=== PATIENT | female | born 1930 | race Caucasian/White ===

== ENCOUNTER 2018-11-27 17:57 | Inpatient (IN) | payer MEDICARE, BC ==
[~2018-11-27] VITALS: Ht 157.5 cm; Wt 61.7 kg
[2018-11-27] MEDS ORDERED: ENOX40DI SQ (18:41)
[2018-11-27] MEDS ORDERED: ATOR10TA PO (18:41)
[2018-11-27] MEDS ORDERED: ZOLP5TAB8 PO (18:41)
[2018-11-27] MEDS ORDERED: CITA10TA9 PO (18:41)
[2018-11-27] MEDS ORDERED: HYDR-3326 PO (18:41)
[2018-11-27] MEDS ORDERED: ALLO100T PO (18:41)
[2018-11-27] MEDS ORDERED: MAG355OR18 PO (18:41)
[2018-11-27] MEDS ORDERED: CARV3.122 PO (18:41)
[2018-11-27] MEDS ORDERED: MAGN400O6 PO (18:41)
[2018-11-27] MEDS ORDERED: ONDA2VIA IV (18:41)
[2018-11-27] MEDS ORDERED: LEVO88TA2 PO (18:41)
[2018-11-27] MEDS ORDERED: ACET-2154 PO (18:41)
[2018-11-27 18:55] VITALS: BP 105/54
--- NOTE | 2018-11-27 19:05 | NUR ---
PATIENT ARRIVED TO UNIT AT 1730 VIA [facility], MD COPELAND AND JHON NOTIFED OF PATIENTS ARRIVAL, VITALS: 105/ 54, 18 RESPIRATIONS, 95% ON ROOM AIR, 64 PULSE, 99.4 ORAL TEMPERATURE, NO COMPLAINTS OF PAIN, NO SIGNS OF DISTRESS NOTED, CALL LIGHT IN REACH, BED LOCKED AND IN LOWEST POSITION, ALL NEEDS MET AT THIS TIME
[2018-11-27 19:55] VITALS: BP 129/47
[2018-11-27] MEDS ORDERED: MAGNESIUM HYDROXIDE 30 ML LIQUID UDC PO PRN (20:30)
[2018-11-27] MEDS ORDERED: MAG HYDROX/AL HYDROX/SIMETH 30 ML LIQUID UDC PO PRN (20:30)
[2018-11-27] MEDS ORDERED: CARVEDILOL 3.125 MG TABLET PO SCH (21:00)
[2018-11-27] MEDS: ATORVASTATIN 10 MG TABLET PO SCH (21:47)
[2018-11-27] MEDS: HYDROCODONE/APAP 5-325MG TABLET PO PRN (22:02)
[2018-11-28] MEDS: HYDROCODONE/APAP 5-325MG TABLET PO PRN (06:26)
[2018-11-28 06:28] VITALS: BP 123/58
[2018-11-28] MEDS ORDERED: LEVOTHYROXINE SODIUM 88 MCG TABLET PO SCH (07:30)
[2018-11-28 08:00] VITALS: BP 104/43
[2018-11-28] MEDS: CARVEDILOL 3.125 MG TABLET PO SCH ×2 (08:00→18:30)
[2018-11-28 08:09] LABS: BASOPHILS % (AUTO) 0.6 % (0.0-2.0); EOSINOPHILS # (AUTO) 0.1 K/uL (0.0-0.7); EOSINOPHILS % (AUTO) 2.4 % (0.0-7.0); HEMATOCRIT 29.7 % (31.2-41.9); HEMOGLOBIN 10.2 g/dL (10.9-14.3); LYMPHOCYTES # (AUTO) 1.1 K/uL (20.0-40.0); LYMPHOCYTES % (AUTO) 21.9 % (20.5-51.5); MEAN CORPUSCULAR HGB CONC 34 g/dL (32.3-35.6); MEAN CORPUSCULAR VOLUME 102.4 fL (75.5-95.3); MONOCYTES # (AUTO) 0.4 K/uL (2.0-10.0); MONOCYTES % (AUTO) 8.7 % (0.0-11.0); NEUTROPHILS # (AUTO) 3.2 K/uL (1.8-8.9); NEUTROPHILS % (AUTO) 66.4 % (38.5-71.5); PLATELET COUNT (AUTO) 177 K/uL (179-408); WHITE BLOOD COUNT (AUTO) 4.9 K/uL (3.8-11.8)
[2018-11-28 08:34] LABS: THYROID STIMULATING HORMONE 6.856 mIU/mL (0.358-3.740)
[2018-11-28 08:58] LABS: ALANINE AMINOTRANSFERASE 17 U/L (14-59); ALKALINE PHOSPHATASE 49 U/L (50-136); ASPARTATE AMINOTRANSFERASE 24 U/L (15-37); BILIRUBIN,TOTAL 0.7 mg/dL (0.2-1.0); CARBON DIOXIDE 26 mmol/L (21-32); CHLORIDE 104 mmol/L (98-107); CHOLESTEROL 118 mg/dL (<200); CREATININE 0.9 mg/dL (0.6-1.3); GLUCOSE 101 mg/dL (74-106); HDL CHOLESTEROL 22 mg/dL (40-60); MAGNESIUM 1.9 mg/dL (1.8-2.4); POTASSIUM 3.7 mmol/L (3.5-5.1); TOTAL PROTEIN, SERUM 6.3 g/dL (6.4-8.2); TRIGLYCERIDES 88 MG/DL (30-150); UREA NITROGEN, BLOOD 11 mg/dL (7-18); URIC ACID 3.8 mg/dL (2.6-6.0)
[2018-11-28] MEDS: LEVOTHYROXINE SODIUM 88 MCG TABLET PO SCH (09:50)
[2018-11-28] MEDS: ALLOPURINOL 100 MG TABLET PO SCH (09:50)
[2018-11-28] MEDS: CITALOPRAM 10 MG TABLET PO SCH (09:50)
[2018-11-28] MEDS: ENOXAPARIN SODIUM 40 MG/0.4 ML DISP.SYRIN SQ SCH (09:53)
[2018-11-28 16:28] VITALS: BP 126/51
[2018-11-28 19:46] VITALS: BP 107/53
--- NOTE | 2018-11-28 20:00 | NUR ---
Received patient laying in bed. No acute distress noted. A/O x 2 with episodes of forgetfulness. In room air. Dressing on the left hip C/D/I. Safety initiated. Bed alarm on. Patient c/o abdominal discomfort. Poor urine output. Will closely monitor.
[2018-11-28] MEDS: ATORVASTATIN 10 MG TABLET PO SCH (20:48)
--- NOTE | 2018-11-28 21:45 | NUR ---
Bladder scan done. 422. Straight cath done. 450 total output. MD made aware. New orders per MD. Urine was sent for U/A. Will closely monitor.
[2018-11-28 23:24] LABS: *BILIRUBIN,URIN NEGATIVE (NEGATIVE); *BLOOD, URINE NEGATIVE (NEGATIVE); *CLARITY,URINE CLEAR (CLEAR); *COLOR,URINE YELLOW (YELLOW); *KETONES,URINE NEGATIVE (NEGATIVE); LEUKOCYTE ESTERASE ,URINE NEGATIVE (NEGATIVE); NITRITE, URINE NEGATIVE (NEGATIVE); PH,URINE 5.5 (5.0-8.0); UGLUCOSE NEGATIVE (NEGATIVE)
[2018-11-28 23:26] LABS: BACTERIA,URINE NONE SEEN /HPF (NONE SEEN); RBC,URINE 0-3 /HPF (0-3); SQUAMOUS EPITHELIAL CELL,UR FEW /HPF (NONE SEEN); URINE AMORPHOUS URATE FEW /HPF; WBC,URINE 0-3 /HPF (0-3)
[2018-11-28 23:27] LABS: MUCUS,URINE FEW /LPF (0-FEW)
[2018-11-29 05:00] VITALS: BP 147/63
--- NOTE | 2018-11-29 05:42 | NUR ---
Patient slept t/o shift. Denies pain or SOB. Vital signs stable. No temperature. Dressing on the left hip, C/D/I. Safety and comfort measures maintained t/o shift. Good urine output. All meds given as ordered. All needs met.
[2018-11-29] MEDS: LEVOTHYROXINE SODIUM 88 MCG TABLET PO SCH (06:23)
[2018-11-29 07:48] VITALS: BP 141/60
[2018-11-29] MEDS: ACETAMINOPHEN 325 MG TABLET PO PRN (09:06)
[2018-11-29] MEDS: ALLOPURINOL 100 MG TABLET PO SCH (09:07)
[2018-11-29] MEDS: CARVEDILOL 3.125 MG TABLET PO SCH ×2 (09:07→17:48)
[2018-11-29] MEDS: CITALOPRAM 10 MG TABLET PO SCH (09:07)
[2018-11-29] MEDS: ENOXAPARIN SODIUM 40 MG/0.4 ML DISP.SYRIN SQ SCH (09:09)
[2018-11-29 15:39] VITALS: BP 129/57
--- NOTE | 2018-11-29 18:36 | NUR ---
Patient A&O x2 with episodes of forgetfulness noted at times. Vital signs taken and stable for patient. Due medications administered. Tylenol 650mg 2 tbas PO PRN administered before PT/OT for pain management and effective. Dressing on Left hip intact and dry. No drainage noted. Patient with 2 person assist and BPR. Monitored closely, needs met, safety measures in place, call light left at bed side, endorsed to next shift and will continue with care.
--- NOTE | 2018-11-29 19:00 | NUR ---
PATIENT ALERT ABLE TO MAKE NEEDS KNOW, PATIENT HAS NO SOB NO CHEST PAIN. PATIENT COMPLAIN OF LEFT HIP PAIN WILL MEDICATE ORDERED. KEPT CLEAN AND DRY.
[2018-11-29 20:36] VITALS: BP 115/60
[2018-11-29] MEDS: ATORVASTATIN 10 MG TABLET PO SCH (20:39)
[2018-11-29] MEDS: HYDROCODONE/APAP 5-325MG TABLET PO PRN (20:47)
[2018-11-30 05:54] VITALS: BP 121/56
[2018-11-30] MEDS: LEVOTHYROXINE SODIUM 88 MCG TABLET PO SCH (06:03)
--- NOTE | 2018-11-30 06:19 | NUR ---
PATIENT ALERT ABLE TO MAKE NEEDS KNOW, ASSISTED WITH TOILETING. PATIENT HAS NO FURTHER COMPLAIN OF L HIP PAIN, SLEPT MOST OF THE NIGHT. WILL CONT TO MONITOR.
[2018-11-30 07:53] VITALS: BP 127/54
[2018-11-30] MEDS: CARVEDILOL 3.125 MG TABLET PO SCH ×2 (08:00→18:00)
[2018-11-30] MEDS: CITALOPRAM 10 MG TABLET PO SCH (08:42)
[2018-11-30] MEDS: ALLOPURINOL 100 MG TABLET PO SCH (08:42)
[2018-11-30] MEDS: ACETAMINOPHEN 325 MG TABLET PO PRN (08:43)
[2018-11-30] MEDS: ENOXAPARIN SODIUM 40 MG/0.4 ML DISP.SYRIN SQ SCH (08:45)
--- NOTE | 2018-11-30 10:11 | NUR ---
INDIVIDUALIZE PLAN OF CARE
[2018-11-30 15:57] VITALS: BP 130/54
--- NOTE | 2018-11-30 19:30 | NUR ---
Patient found sleeping in room. Alert and oriented x 2-3. Irritable upon assessment. No C/O pain or SOB at this time. Continent, with BRP assist to the bathroom. Call light and frequently used items within reach. Will continue to monitor.
--- NOTE | 2018-11-30 19:55 | NUR ---
patient Alert and Oriented, No acute distress. VS stable. Left hip surgical site dry and intact. No c/o pain at this time. Needs attended, safety measures in place. call light left at bed side, endorsed to next shift and will continue with care.
[2018-11-30 19:56] VITALS: BP 118/52
[2018-11-30] MEDS: ATORVASTATIN 10 MG TABLET PO SCH (20:21)
[2018-12-01] MEDS: LEVOTHYROXINE SODIUM 88 MCG TABLET PO SCH (06:20)
[2018-12-01 06:43] VITALS: BP 99/62
--- NOTE | 2018-12-01 08:00 | NUR ---
Received patient awake in bed. AAOx2. In no acute distress. Denies pain at this time. No SOB noted. Safety measures implemented. Call light within reach. Will continue to monitor.
[2018-12-01] MEDS: ALLOPURINOL 100 MG TABLET PO SCH (08:46)
[2018-12-01] MEDS: CARVEDILOL 3.125 MG TABLET PO SCH ×2 (08:46→18:00)
[2018-12-01] MEDS: CITALOPRAM 10 MG TABLET PO SCH (08:46)
[2018-12-01 08:59] VITALS: BP 143/77
[2018-12-01] MEDS: ENOXAPARIN SODIUM 40 MG/0.4 ML DISP.SYRIN SQ SCH (09:07)
[2018-12-01 15:42] VITALS: BP 119/53
--- NOTE | 2018-12-01 16:10 | NUR ---
INTERDISCIPLINARY TEAM CONFERENCE
[2018-12-01] MEDS: HYDROCODONE/APAP 5-325MG TABLET PO PRN (18:17)
--- NOTE | 2018-12-01 18:22 | NUR ---
Patient compliant with care and medication. Complained of left hip/thigh pain; PRN Z[place] administered. No SOB noted. All needs met. Will endorse accordingly. Continue plan of care.
--- NOTE | 2018-12-01 19:30 | NUR ---
Alert and oriented x 2-3. Restless upon assessment. Patient states that she would like to . Psych consult pending. No C/O pain or SOB at this time. Continent, with BRP assist with wheelchair to the bathroom. Call light and frequently used items within reach. Will continue to monitor.
[2018-12-01] MEDS: ATORVASTATIN 10 MG TABLET PO SCH (20:09)
[2018-12-01] MEDS: ZOLPIDEM 5 MG TABLET PO PRN (20:09)
[2018-12-01 20:49] VITALS: BP 122/64
[2018-12-02 05:31] VITALS: BP 126/70
[2018-12-02] MEDS: LEVOTHYROXINE SODIUM 88 MCG TABLET PO SCH (06:10)
[2018-12-02 07:43] VITALS: BP 131/57
[2018-12-02] MEDS: ALLOPURINOL 100 MG TABLET PO SCH (08:26)
[2018-12-02] MEDS: HYDROCODONE/APAP 5-325MG TABLET PO PRN (08:26)
[2018-12-02] MEDS: CITALOPRAM 10 MG TABLET PO SCH (08:26)
[2018-12-02] MEDS: CARVEDILOL 3.125 MG TABLET PO SCH ×2 (08:27→17:15)
[2018-12-02] MEDS: ENOXAPARIN SODIUM 40 MG/0.4 ML DISP.SYRIN SQ SCH (08:32)
--- NOTE | 2018-12-02 09:58 | NUR ---
Patient noted sitting up in bed eating breakfast, complaints of pain, PRN norco given, no signs of distress noted, call light in reach, bed locked and in lowest position
[2018-12-02 16:00] VITALS: BP 94/45
--- NOTE | 2018-12-02 19:30 | NUR ---
Alert and oriented x 2-3. No C/O pain or SOB at this time. Patient requesting Ambien as night time sleep aid. Continent, with BRP assist with wheelchair to the bathroom. Call light and frequently used items within reach. Will continue to monitor.
[2018-12-02] MEDS: ATORVASTATIN 10 MG TABLET PO SCH (20:13)
[2018-12-02] MEDS: ZOLPIDEM 5 MG TABLET PO PRN (20:14)
[2018-12-02 20:25] VITALS: BP 109/52
[2018-12-03] MEDS: HYDROCODONE/APAP 5-325MG TABLET PO PRN ×2 (04:49→09:13)
[2018-12-03 05:22] VITALS: BP 108/55
[2018-12-03] MEDS: LEVOTHYROXINE SODIUM 88 MCG TABLET PO SCH (06:18)
[2018-12-03 08:00] VITALS: BP 113/66
[2018-12-03] MEDS: ALLOPURINOL 100 MG TABLET PO SCH (08:29)
[2018-12-03] MEDS: CITALOPRAM 10 MG TABLET PO SCH (08:29)
[2018-12-03] MEDS: CARVEDILOL 3.125 MG TABLET PO SCH ×2 (08:29→18:00)
[2018-12-03] MEDS: ENOXAPARIN SODIUM 40 MG/0.4 ML DISP.SYRIN SQ SCH (08:30)
--- NOTE | 2018-12-03 08:57 | NUR ---
Patient noted laying in bed, took all AM medications, no changes in mental status, complaints of left hip pain, prn [place] given, no signs of distress noted, call light in reach, bed locked and in lowest position, all needs met at this time
[2018-12-03 16:00] VITALS: BP 110/62
--- NOTE | 2018-12-03 19:30 | NUR ---
Alert and oriented x 2-3. No C/O pain or SOB at this time. Continent, with BRP assist with wheelchair to the bathroom. Patient requesting night time sleep aid and Tylenol for pain in left hip. Original surgical dressing intact or left hip. Call light and frequently used items within reach. Will continue to monitor.
[2018-12-03] MEDS: ZOLPIDEM 5 MG TABLET PO PRN (20:15)
[2018-12-03] MEDS: ACETAMINOPHEN 325 MG TABLET PO PRN (20:15)
[2018-12-03] MEDS: ATORVASTATIN 10 MG TABLET PO SCH (20:15)
[2018-12-03 20:57] VITALS: BP 109/47
[2018-12-04 04:29] VITALS: BP 121/58
[2018-12-04] MEDS: LEVOTHYROXINE SODIUM 88 MCG TABLET PO SCH (06:24)
[2018-12-04 09:00] VITALS: BP 113/54
[2018-12-04] MEDS: CARVEDILOL 3.125 MG TABLET PO SCH ×2 (09:18→18:00)
[2018-12-04] MEDS: CITALOPRAM 10 MG TABLET PO SCH (09:19)
[2018-12-04] MEDS: ALLOPURINOL 100 MG TABLET PO SCH (09:19)
[2018-12-04] MEDS: ENOXAPARIN SODIUM 40 MG/0.4 ML DISP.SYRIN SQ SCH (09:26)
--- NOTE | 2018-12-04 12:13 | NUR ---
Pt received this morning sitting up in wheelchair for breakfast. Pt AAOx1-2. No acute distress, VS stable. Pt compliant with routine medications and cooperative with therapies as offered. Pt denies pain. Left hip original surgical dressing intact. Able to make needs known and showered with assistance and helped back to bed. All comfort and safety needs met. Bed in locked and lowest position, with side rails up, and bed alarm on. Call light placed within reach. Will continue to monitor.
[2018-12-04 16:00] VITALS: BP 103/43
[2018-12-04 20:00] VITALS: BP 123/58
[2018-12-04] MEDS: ATORVASTATIN 10 MG TABLET PO SCH (20:23)
[2018-12-04] MEDS: ZOLPIDEM 5 MG TABLET PO PRN (21:02)
--- NOTE | 2018-12-05 05:53 | NUR ---
PATIENT ASLEEP IN BED. SLEPT WELL THROUGHOUT THE NIGHT. BED ALARM ON. CALL LIGHT IN REACH. ALL NEEDS ATTENDED. WILL CONTINUE TO MONITOR AND ASSESS,
[2018-12-05] MEDS: LEVOTHYROXINE SODIUM 88 MCG TABLET PO SCH (06:15)
[2018-12-05 07:52] VITALS: BP 127/77
[2018-12-05] MEDS: ALLOPURINOL 100 MG TABLET PO SCH (08:14)
[2018-12-05] MEDS: CITALOPRAM 10 MG TABLET PO SCH (08:14)
[2018-12-05] MEDS: CARVEDILOL 3.125 MG TABLET PO SCH ×2 (08:15→18:00)
[2018-12-05] MEDS: ENOXAPARIN SODIUM 40 MG/0.4 ML DISP.SYRIN SQ SCH (08:24)
[2018-12-05] MEDS ORDERED: MAG HYDROX/AL HYDROX/SIMETH 30 ML LIQUID UDC PO PRN (14:00)
[2018-12-05] MEDS: ACETAMINOPHEN 325 MG TABLET PO PRN (15:12)
[2018-12-05 15:56] VITALS: BP 138/60
--- NOTE | 2018-12-05 18:56 | NUR ---
Pt received this morning resting in bed, assessed. No acute distress, pain, or SOB noted. Pt is able to make needs known. VSS. Pt assisted to restroom for BMx1 and voiding. Pt returned to bed. Bed in locked and lowest position with side rails up x2. Bed alarm on. All comfort and safety needs met. Personal belongings and call light placed within reach, will continue to monitor.
[2018-12-05 19:46] VITALS: BP 137/50
[2018-12-05] MEDS: ATORVASTATIN 10 MG TABLET PO SCH (20:55)
[2018-12-05] MEDS: ZOLPIDEM 5 MG TABLET PO PRN (21:06)
[2018-12-06 04:54] VITALS: BP 125/62
[2018-12-06] MEDS: LEVOTHYROXINE SODIUM 88 MCG TABLET PO SCH (06:49)
[2018-12-06 07:16] LABS: BASOPHILS % (AUTO) 0.7 % (0.0-2.0); EOSINOPHILS # (AUTO) 0.2 K/uL (0.0-0.7); EOSINOPHILS % (AUTO) 3.4 % (0.0-7.0); HEMATOCRIT 31.6 % (31.2-41.9); HEMOGLOBIN 10.7 g/dL (10.9-14.3); LYMPHOCYTES # (AUTO) 1.5 K/uL (20.0-40.0); LYMPHOCYTES % (AUTO) 26.6 % (20.5-51.5); MEAN CORPUSCULAR HEMOGLOBIN 34.6 uug (24.7-32.8); MEAN CORPUSCULAR HGB CONC 34 g/dL (32.3-35.6); MEAN CORPUSCULAR VOLUME 101.7 fL (75.5-95.3); MONOCYTES # (AUTO) 0.4 K/uL (2.0-10.0); MONOCYTES % (AUTO) 6.3 % (0.0-11.0); NEUTROPHILS # (AUTO) 3.6 K/uL (1.8-8.9); PLATELET COUNT (AUTO) 357 K/uL (179-408); RED BLOOD CELL COUNT(AUTO) 3.11 MIL/uL (3.63-4.92); WHITE BLOOD COUNT (AUTO) 5.8 K/uL (3.8-11.8)
[2018-12-06 07:37] LABS: CARBON DIOXIDE 26 mmol/L (21-32); CHLORIDE 104 mmol/L (98-107); CREATININE 0.9 mg/dL (0.6-1.3); GLUCOSE 102 mg/dL (74-106); UREA NITROGEN, BLOOD 10 mg/dL (7-18)
--- NOTE | 2018-12-06 07:44 | NUR ---
SLEEPING IN BED, NO DISTRESS NOTED
[2018-12-06 08:01] VITALS: BP 123/53
[2018-12-06] MEDS: ALLOPURINOL 100 MG TABLET PO SCH (08:22)
[2018-12-06] MEDS: CITALOPRAM 10 MG TABLET PO SCH (08:22)
[2018-12-06] MEDS: CARVEDILOL 3.125 MG TABLET PO SCH ×2 (08:22→17:17)
[2018-12-06] MEDS: ENOXAPARIN SODIUM 40 MG/0.4 ML DISP.SYRIN SQ SCH (08:24)
--- NOTE | 2018-12-06 14:13 | NUR ---
PATIENT NOTED WITH ITCHING AND REDNESS, TO BILATERAL HANDS AND WRISTS, MD ORDERED HYDROCORTISONE,WILL CONTINUE TO MONITOR
[2018-12-06 15:51] VITALS: BP 125/62
[2018-12-06 16:01] VITALS: BP 125/62
[2018-12-06] MEDS: HYDROCORTISONE 1% CREAM 30 GM TUBE TP SCH (17:16)
--- NOTE | 2018-12-06 17:35 | NUR ---
patient is alert, oriented x2-3, ambulatory with FWW, with supervision, no distress noted, no sob, resp even nonlabored, skin warm and dry to touch, kept clean and dry, good perineal care provided, educated about safety, all needs attended, call light with in reach.
[2018-12-06 19:45] VITALS: BP 105/51
[2018-12-06] MEDS: ATORVASTATIN 10 MG TABLET PO SCH ×2 (20:51→20:58)
[2018-12-07 04:36] VITALS: BP 116/49
[2018-12-07] MEDS: LEVOTHYROXINE SODIUM 88 MCG TABLET PO SCH (06:48)
[2018-12-07] MEDS: CITALOPRAM 10 MG TABLET PO SCH (09:26)
[2018-12-07] MEDS: ALLOPURINOL 100 MG TABLET PO SCH (09:27)
[2018-12-07] MEDS: CARVEDILOL 3.125 MG TABLET PO SCH ×2 (09:28→18:16)
[2018-12-07] MEDS: HYDROCORTISONE 1% CREAM 30 GM TUBE TP SCH ×2 (09:31→17:34)
[2018-12-07] MEDS: ENOXAPARIN SODIUM 40 MG/0.4 ML DISP.SYRIN SQ SCH (09:46)
--- NOTE | 2018-12-07 13:16 | NUR ---
SBAR report received this morning from [facility] nurse. Pt resting in bed, comfortably. Pt assessed, denies pain with no acute distress noted. Pt able to make needs known. Pt compliant with medications and cooperative with therapies as offered. Pt assisted by SALMA to shower, left hip original dressing covered, still accidentally became wet. New dressing applied, Photo taken of skin integrity, 8 kayleigh intact, and Sx well approximated, with no s/s of infection. Pt teaching provided. All comfort and safety needs met. Bed in locked and lowest position with side rails up x2, bed alarm on, personal items and call light placed within reach. Will continue to monitor.
[2018-12-07 16:00] VITALS: BP 128/67
[2018-12-07 19:47] VITALS: BP 112/41
[2018-12-07] MEDS: ACETAMINOPHEN 325 MG TABLET PO PRN (19:49)
[2018-12-07] MEDS: ATORVASTATIN 10 MG TABLET PO SCH (20:52)
[2018-12-08] MEDS: HYDROCODONE/APAP 5-325MG TABLET PO PRN (00:53)
--- NOTE | 2018-12-08 02:24 | NUR ---
No change in Pt status. VSS. Pt able to make needs known. Pt compliant with routine medications. Tylenol administered per PRN orders. Call light and belongings placed within reach. Bed in locked, lowest position, with side rails up x2, and bed alarm on. All comfort needs attended to. Will continue to monitor for safety.
[2018-12-08 05:32] VITALS: BP 132/60
[2018-12-08] MEDS: LEVOTHYROXINE SODIUM 88 MCG TABLET PO SCH (06:22)
[2018-12-08 07:51] VITALS: BP 116/48
[2018-12-08] MEDS: CITALOPRAM 10 MG TABLET PO SCH (08:11)
[2018-12-08] MEDS: ALLOPURINOL 100 MG TABLET PO SCH (08:11)
[2018-12-08] MEDS: CARVEDILOL 3.125 MG TABLET PO SCH ×2 (08:12→17:48)
[2018-12-08] MEDS: HYDROCORTISONE 1% CREAM 30 GM TUBE TP SCH ×2 (08:13→16:37)
[2018-12-08] MEDS: ENOXAPARIN SODIUM 40 MG/0.4 ML DISP.SYRIN SQ SCH (08:22)
--- NOTE | 2018-12-08 14:44 | NUR ---
INTERDISCIPLINARY TEAM CONFERENCE
[2018-12-08 16:38] VITALS: BP 114/50
[2018-12-08] MEDS: ATORVASTATIN 10 MG TABLET PO SCH (20:45)
[2018-12-08 21:40] VITALS: BP 100/57
--- NOTE | 2018-12-09 04:41 | NUR ---
awake alert and oriented x2-3 Confused and disoriented.VSS. Needs attended. Fall precautions maintained. Siderails up for safety. OOB to the BR with assist. Voiding freely. No acute distress noted. Kept comfortable. Will monitor patient.
[2018-12-09 05:13] VITALS: BP 110/50
[2018-12-09] MEDS: LEVOTHYROXINE SODIUM 88 MCG TABLET PO SCH (06:27)
[2018-12-09 07:51] VITALS: BP 122/51
[2018-12-09] MEDS: ALLOPURINOL 100 MG TABLET PO SCH (09:39)
[2018-12-09] MEDS: CITALOPRAM 10 MG TABLET PO SCH (09:39)
[2018-12-09] MEDS: CARVEDILOL 3.125 MG TABLET PO SCH ×2 (09:39→17:17)
[2018-12-09] MEDS: ENOXAPARIN SODIUM 40 MG/0.4 ML DISP.SYRIN SQ SCH (09:40)
[2018-12-09] MEDS: HYDROCORTISONE 1% CREAM 30 GM TUBE TP SCH ×2 (09:44→17:18)
[2018-12-09] MEDS: ACETAMINOPHEN 325 MG TABLET PO PRN (09:45)
[2018-12-09 15:39] VITALS: BP 128/56
--- NOTE | 2018-12-09 17:46 | NUR ---
The patient remains pleasantly confused. She spoke with her daughter Yamila via phone and her son in person today. She mentions she wishes she could go home today because she said it is so hard to be in an unfamiliar environment. She remembers she lives next to a school at her current residence.Patient watching television. Patient request to have assistance with her television. Assistant Professor Of Economics and COMMISSIONS MANAGER gave patient assistance with her channel buttons. Patient with even unlabored breathing. No complaint of pain at this time. Endorsement to next shift team registered nurse. Cornelio Matos RN
[2018-12-09] MEDS: ATORVASTATIN 10 MG TABLET PO SCH (20:16)
[2018-12-09 20:38] VITALS: BP 115/51
[2018-12-10] MEDS: ACETAMINOPHEN 325 MG TABLET PO PRN (01:22)
[2018-12-10 05:21] VITALS: BP 119/54
[2018-12-10] MEDS: LEVOTHYROXINE SODIUM 88 MCG TABLET PO SCH (06:04)
--- NOTE | 2018-12-10 06:39 | NUR ---
Received patient in bed. AAO x2, sometimes confused. Not in acute distress or SOB. Able to make needs known. On room air. Complained of pain on her left hip, Tylenol given. All due medication given and well tolerated. Physical assessment done. All needs attended promptly. Fall prevention observed. Safety measures maintained. Bed in low and lock position, alarm on, side rails up x2 for safety. Patient educated to use call light. Call light and frequently used items within reach. Continue to monitor and will endorse to the oncoming nurse accordingly.
[2018-12-10] MEDS: ENOXAPARIN SODIUM 40 MG/0.4 ML DISP.SYRIN SQ SCH (08:34)
[2018-12-10] MEDS: ALLOPURINOL 100 MG TABLET PO SCH (08:40)
[2018-12-10] MEDS: CITALOPRAM 10 MG TABLET PO SCH (08:40)
[2018-12-10] MEDS: HYDROCORTISONE 1% CREAM 30 GM TUBE TP SCH ×2 (08:47→17:17)
[2018-12-10] MEDS: CARVEDILOL 3.125 MG TABLET PO SCH ×2 (08:47→17:18)
[2018-12-10 09:37] VITALS: BP 115/66
[2018-12-10 16:43] VITALS: BP 117/72
--- NOTE | 2018-12-10 18:26 | NUR ---
NO CHANGES NOTED DURING SHIFT, PATIENT IS ABLE TO AMBULATE WITH FWW TO THE BATHROOM WITH SUPERVISION, ALERT, ORIENTED AT TIMES WITH EPISODES OF FORGETFULNESS, REORIENTED NEEDED, TOLERATED MEALS AND MEDS WELL.
--- NOTE | 2018-12-10 19:35 | NUR ---
Awake, trying to get out of bed. Bed alarm on. Instructed patient to call for assistance whenever she wants to use the bathroom. Assisted to the bathroom, voided good. Assisted back to bed, made comfortable. safety measure and fall precaution maintained. Continue care as planned.
[2018-12-10] MEDS: ATORVASTATIN 10 MG TABLET PO SCH (20:22)
[2018-12-10] MEDS: ZOLPIDEM 5 MG TABLET PO PRN (20:22)
[2018-12-10 21:03] VITALS: BP 100/53
[2018-12-11 04:33] VITALS: BP 130/63
[2018-12-11] MEDS: LEVOTHYROXINE SODIUM 88 MCG TABLET PO SCH (06:29)
--- NOTE | 2018-12-11 06:48 | NUR ---
Shift End Report: Slept well. No s/s of respiratory distress. No complaint presented throughout the night. All needs attended and met. No significant event reported. Continue current rehab plan of care.
[2018-12-11 07:52] VITALS: BP 126/65
[2018-12-11] MEDS: CITALOPRAM 10 MG TABLET PO SCH (08:38)
[2018-12-11] MEDS: CARVEDILOL 3.125 MG TABLET PO SCH ×2 (08:38→17:15)
[2018-12-11] MEDS: ALLOPURINOL 100 MG TABLET PO SCH (08:38)
[2018-12-11] MEDS: ENOXAPARIN SODIUM 40 MG/0.4 ML DISP.SYRIN SQ SCH (08:45)
[2018-12-11] MEDS: HYDROCODONE/APAP 5-325MG TABLET PO PRN (08:45)
[2018-12-11] MEDS: HYDROCORTISONE 1% CREAM 30 GM TUBE TP SCH ×2 (08:50→17:16)
--- NOTE | 2018-12-11 10:34 | NUR ---
Patient noted sitting up in wheelchair during therapy, complaints of pain, PRN Chromo given, no signs of distress noted, call light in reach, bed locked and in lowest position, all needs met at this time.
[2018-12-11 17:10] VITALS: BP 109/55
--- NOTE | 2018-12-11 18:44 | NUR ---
no behaviors noted this shift, no complaints of pain at this time, no signs of acute distress noted, all needs met
--- NOTE | 2018-12-11 19:35 | NUR ---
Sleeping comfortably during initial rounds. No s/s of respiratory distress noted. Safety measure and fall precaution maintained. Continue care as planned.
[2018-12-11] MEDS: ATORVASTATIN 10 MG TABLET PO SCH (20:25)
[2018-12-11] MEDS: ACETAMINOPHEN 325 MG TABLET PO PRN (20:25)
[2018-12-11 21:06] VITALS: BP 105/52
[2018-12-12 04:39] VITALS: BP 110/50
--- NOTE | 2018-12-12 05:33 | NUR ---
Shift End Report: VS stable. Slept in between care. Medicated once for discomforts. No further complained presented. No fall/injury reported. All needs attended and met. Continue current rehab plan of care.
[2018-12-12] MEDS: LEVOTHYROXINE SODIUM 88 MCG TABLET PO SCH (06:31)
[2018-12-12 07:37] VITALS: BP 112/52
[2018-12-12] MEDS: CITALOPRAM 10 MG TABLET PO SCH (08:56)
[2018-12-12] MEDS: ALLOPURINOL 100 MG TABLET PO SCH (08:56)
[2018-12-12] MEDS: CARVEDILOL 3.125 MG TABLET PO SCH ×2 (08:57→17:53)
--- NOTE | 2018-12-12 09:00 | NUR ---
Patient awake, alert, sitting on the chair, not in any distress. No complain of any pain or discomfort at this time. Due medications administered and tolerated well. Assisted with her needs promptly. Call light and frequently used items placed within reach.
[2018-12-12] MEDS: ENOXAPARIN SODIUM 40 MG/0.4 ML DISP.SYRIN SQ SCH (09:03)
[2018-12-12] MEDS: HYDROCORTISONE 1% CREAM 30 GM TUBE TP SCH ×2 (09:29→17:28)
[2018-12-12 16:24] VITALS: BP 119/60
--- NOTE | 2018-12-12 19:35 | NUR ---
Sleeping during initial rounds. No s/s of respiratory distress. Safety measure and fall precaution maintained. Continue care as planned.
[2018-12-12] MEDS: ATORVASTATIN 10 MG TABLET PO SCH (20:15)
[2018-12-12] MEDS: ACETAMINOPHEN 325 MG TABLET PO PRN (20:15)
[2018-12-12 20:41] VITALS: BP 105/47
[2018-12-13 04:53] VITALS: BP 129/53
[2018-12-13] MEDS: LEVOTHYROXINE SODIUM 88 MCG TABLET PO SCH (06:24)
--- NOTE | 2018-12-13 06:42 | NUR ---
Shift End Report: VS stable. Medicated once for pain with help. Slept good. No further complaint presented except being feeling cold when getting out to the bathroom. Made comfortable and warm at all times. No fall/injury . Assisted to the bathroom all the time to avoid fall. All needs attended nad met. No significant event reported. Continue current rehab plan of care.
[2018-12-13 07:50] VITALS: BP 115/74
[2018-12-13] MEDS: CITALOPRAM 10 MG TABLET PO SCH (09:13)
[2018-12-13] MEDS: CARVEDILOL 3.125 MG TABLET PO SCH ×2 (09:13→17:07)
[2018-12-13] MEDS: ALLOPURINOL 100 MG TABLET PO SCH (09:14)
[2018-12-13] MEDS: HYDROCORTISONE 1% CREAM 30 GM TUBE TP SCH ×2 (09:14→17:06)
[2018-12-13] MEDS: ENOXAPARIN SODIUM 40 MG/0.4 ML DISP.SYRIN SQ SCH (09:19)
[2018-12-13 15:49] VITALS: BP 112/54
[2018-12-13 20:03] VITALS: BP 112/61
[2018-12-13] MEDS: ATORVASTATIN 10 MG TABLET PO SCH (20:34)
--- NOTE | 2018-12-14 04:30 | NUR ---
awake alert and oriented x2-3 with periods of forgetfulness at times. Patient gets OOB to the BR without calling the nurse, bed alarm on, and reminding patient all the time. Ambulates with walker under supervision. Denies any pain nor any discomfort. Possible discharge today. Kept comfortable. Will monitor patient. Fall precautions maintained. Siderails up for safety.
[2018-12-14 05:52] VITALS: BP 113/57
[2018-12-14] MEDS: LEVOTHYROXINE SODIUM 88 MCG TABLET PO SCH (06:20)
[2018-12-14 08:14] VITALS: BP 123/61
[2018-12-14] MEDS: CITALOPRAM 10 MG TABLET PO SCH (08:42)
[2018-12-14] MEDS: ALLOPURINOL 100 MG TABLET PO SCH (08:42)
[2018-12-14 08:44] VITALS: BP 117/52
[2018-12-14] MEDS: CARVEDILOL 3.125 MG TABLET PO SCH (08:44)
[2018-12-14] MEDS: ENOXAPARIN SODIUM 40 MG/0.4 ML DISP.SYRIN SQ SCH (08:46)
[2018-12-14] MEDS: HYDROCORTISONE 1% CREAM 30 GM TUBE TP SCH (08:49)
--- NOTE | 2018-12-14 14:42 | NUR ---
PATIENT DISCHARGED TO ASSISTED LIVING, WITH DAUGHTER IN HER PRIVATE CAR, PATIENT IS IN STABLE CONDITION, NO SOB, RESP EVEN NONLABORED,SKIN WARM AND DRY TO TOUCH, SKIN INTACT, INCISION SITE IS CLEAN AND DRY, NO SKIN ISSUES NOTED AT THIS TIME, DISCHARGE INSTRUCTIONS GIVEN TO PATIENT AND DAUGHTER, VERBALIZED UNDERSTANDING OF IT, WHEELCHAIR, BEDSIDE COMMODE, AND FWW SENT WITH PATIENT, BELONGINGS ACCOUNTED AND SIGNED, PRESCRIPTION, MEDS LIST, AND DISCHARGE INSTRUCTIONS ARE GIVEN TO PATIENT AND TO DAUGHTER.
== END 2018-12-14 14:30 | disposition home health service (06) | DRG 559 ==
PROVIDERS: ADMIT Physical Medicine & Rehabilitation Pain Medicine; ATTEND Physical Medicine & Rehabilitation Pain Medicine
DX: S72.012D Unspecified intracapsular fracture of left femur, subsequent encounter for closed fracture with routine healing (principal); E43 Unspecified severe protein-calorie malnutrition; D62 Acute posthemorrhagic anemia; W18.30XD Fall on same level, unspecified, subsequent encounter; E03.9 Hypothyroidism, unspecified; E78.5 Hyperlipidemia, unspecified; F32.9 Major depressive disorder, single episode, unspecified; F41.9 Anxiety disorder, unspecified; R26.9 Unspecified abnormalities of gait and mobility; M19.90 Unspecified osteoarthritis, unspecified site; R41.89 Other symptoms and signs involving cognitive functions and awareness; M10.9 Gout, unspecified; M81.0 Age-related osteoporosis without current pathological fracture; I11.0 Hypertensive heart disease with heart failure; I50.9 Heart failure, unspecified; Z66 Do not resuscitate; Z86.73 Personal history of transient ischemic attack (TIA), and cerebral infarction without residual deficits
CPT/HCPCS: 36415; 73502; 82652; 83735; 84100; 84443; 84550; 85025; C1758; J1650; J8499

== ENCOUNTER 2019-12-03 20:39 | Inpatient (IN) | payer MEDICARE, BC ==
[~2019-12-03] VITALS: Ht 162.6 cm; Wt 63.5 kg
--- NOTE | 2019-12-03 20:00 | NUR ---
RECEIVED PATIENT VIA GURNEY DIRECT ADMIT. PATIENT IS ALERT TO SELF ONLY. CONFUSED AND DISORIENTED, BUT ABLE TO FOLLOW DIRECTIONS. C/O PAIN RIGHT HIP. WAITING FOR MD ORDERS. VS WNL. NO RESP.DISTRESS NOTED. DRESSINGS NOTED TO RIGHT HIP, C/D/I. CALL LIGHT IN REACH. BED ALARM ON. ALL NEEDS ATTENDED. WILL CONTINUE TO MONITOR AND ASSESS.
[~2019-12-03 20:39] MED LIST: ACET-2154 PO; ALLO100T PO; ATOR10TA PO; CARV3.122 PO; CITA10TA9 PO; ENOX40DI SQ; HYDR-3326 PO; LEVO88TA2 PO; MAG355OR18 PO; MAGN400O6 PO; ONDA2VIA IV; ZOLP5TAB8 PO
[2019-12-03] MEDS: HYDROCODONE/APAP 5-325MG TABLET PO PRN (21:07)
[2019-12-03 21:20] VITALS: BP 108/43
[2019-12-03] MEDS ORDERED: ACID1TAB4 PO (21:33)
[2019-12-03] MEDS ORDERED: LOPE2CAP40 PO (21:33)
[2019-12-03] MEDS ORDERED: ACET-2154 PO (21:33)
[2019-12-03] MEDS ORDERED: EMOL85CR2 (21:33)
[2019-12-03] MEDS ORDERED: BISA10SU61 RC (21:33)
[2019-12-03] MEDS ORDERED: MIRT-121 PO (21:33)
[2019-12-03] MEDS ORDERED: HYDR-4384 PO (21:33)
[2019-12-03] MEDS ORDERED: ALLO100T PO (21:33)
[2019-12-03] MEDS ORDERED: MINE454C11 TP (21:33)
[2019-12-03] MEDS ORDERED: MAG-82 PO (21:33)
[2019-12-03] MEDS ORDERED: ZINC113P3 TP (21:33)
[2019-12-03] MEDS ORDERED: LEVO125T8 PO (21:33)
[2019-12-03] MEDS ORDERED: NUT.237L36 PO (21:33)
[2019-12-03] MEDS ORDERED: MAGN400O6 PO (21:33)
[2019-12-03] MEDS ORDERED: ASPI81TA31 PO (21:33)
[2019-12-03] MEDS ORDERED: ONDA4TAB5 IV (21:33)
[2019-12-03] MEDS ORDERED: CARV3.12 PO (21:33)
[2019-12-03] MEDS ORDERED: QUET25TA PO (21:33)
[2019-12-04 04:33] VITALS: BP 106/43
--- NOTE | 2019-12-04 06:53 | NUR ---
PATIENT ASLEEP. EASILY AROUSABLE. DENIES PAIN. SLEPT WELL. BED ALARM ON. CALL LIGHT IN REACH. ALL NEEDS ATTENDED. WILL CONTINUE TO MONITOR AND ASSESS.
[2019-12-04 07:52] VITALS: BP 96/42
[2019-12-04] MEDS ORDERED: SIMETH PO SCH (08:30)
[2019-12-04] MEDS ORDERED: MAGNESIUM HYDROXIDE 30 ML LIQUID UDC PO PRN (08:30)
[2019-12-04] MEDS ORDERED: ONDANSETRON HCL 4 MG TABLET PO PRN (08:30)
[2019-12-04] MEDS ORDERED: BISACODYL 10 MG SUPP.RECT RC PRN (08:30)
[2019-12-04] MEDS ORDERED: MAG HYDROX PO SCH (08:30)
[2019-12-04] MEDS ORDERED: ZOLPIDEM 5 MG TABLET PO PRN (08:30)
[2019-12-04] MEDS ORDERED: LOPERAMIDE HCL 2 MG CAPSULE PO PRN (08:30)
[2019-12-04] MEDS ORDERED: MAG HYDROX/AL HYDROX/SIMETH 30 ML LIQUID UDC PO PRN (08:30)
[2019-12-04] MEDS ORDERED: ACETAMINOPHEN 325 MG TABLET PO PRN ×2 (08:30)
[2019-12-04] MEDS ORDERED: AL HYDROX PO SCH (08:30)
[2019-12-04] MEDS ORDERED: CARVEDILOL 3.125 MG TABLET PO SCH (09:00)
[2019-12-04] MEDS ORDERED: ALLOPURINOL 100 MG TABLET PO SCH (09:00)
[2019-12-04] MEDS: CARVEDILOL 3.125 MG TABLET PO SCH ×2 (09:00→21:00)
[2019-12-04] MEDS: ACIDOPHILUS/BULGARICUS CHEW TAB PO SCH (09:09)
[2019-12-04] MEDS: ALLOPURINOL 100 MG TABLET PO SCH (09:09)
[2019-12-04] MEDS: ASPIRIN 81 MG TAB.CHEW PO SCH (09:09)
[2019-12-04] MEDS: QUETIAPINE FUMARATE 25 MG TABLET PO SCH ×2 (09:10→16:38)
[2019-12-04] MEDS: CITALOPRAM 10 MG TABLET PO SCH (09:11)
[2019-12-04] MEDS: HYDROCODONE/APAP 5-325MG TABLET PO PRN (09:11)
[2019-12-04] MEDS: MINERAL OIL/PETROLATUM,WHITE 57 GM TUBE TP SCH (09:13)
[2019-12-04] MEDS: GLUCERNA SHAKE 237 ML CAN PO SCH ×2 (09:13→16:38)
[2019-12-04 09:47] LABS: BASOPHILS % (AUTO) 0.3 % (0.0-2.0); EOSINOPHILS # (AUTO) 0.2 K/uL (0.0-0.7); EOSINOPHILS % (AUTO) 1.6 % (0.0-7.0); HEMATOCRIT 22.4 % (31.2-41.9); HEMOGLOBIN 7.6 g/dL (10.9-14.3); LYMPHOCYTES # (AUTO) 1.8 K/uL (20.0-40.0); LYMPHOCYTES % (AUTO) 14.5 % (20.5-51.5); MEAN CORPUSCULAR HEMOGLOBIN 34.7 uug (24.7-32.8); MEAN CORPUSCULAR HGB CONC 34 g/dL (32.3-35.6); MEAN CORPUSCULAR VOLUME 102.6 fL (75.5-95.3); MONOCYTES # (AUTO) 0.7 K/uL (2.0-10.0); MONOCYTES % (AUTO) 5.3 % (0.0-11.0); NEUTROPHILS # (AUTO) 9.6 K/uL (1.8-8.9); NEUTROPHILS % (AUTO) 78.3 % (38.5-71.5); PLATELET COUNT (AUTO) 263 K/uL (179-408); WHITE BLOOD COUNT (AUTO) 12.3 K/uL (3.8-11.8)
[2019-12-04 10:07] LABS: CREATININE 0.9 mg/dL (0.6-1.3)
[2019-12-04 10:22] LABS: RED BLOOD CELL COUNT(AUTO) 2.18 MIL/uL (3.63-4.92)
[2019-12-04] MEDS: ENOXAPARIN SODIUM 40 MG/0.4 ML DISP.SYRIN SQ SCH (11:55)
[2019-12-04] MEDS ORDERED: NALOXONE HCL 0.4 MG/ML AMPUL IV PRN (12:15)
[2019-12-04] MEDS: OXYCODONE HCL 10 MG TAB.SR.12H PO SCH ×2 (12:36→21:05)
--- NOTE | 2019-12-04 14:54 | NUR ---
PATIENT REFUSED FLU SHOT FOR NOW, WILL OFFER AGAIN AND FOLLOW UP WITH FAMILY
[2019-12-04 15:22] VITALS: BP 113/52
--- NOTE | 2019-12-04 18:27 | NUR ---
KEPT COMFORTABLE, REPOSITIONED, HEELS FLOATED, NO BLEEDING NOTED AT SURGERY SITE, NO DISTRESS NOTED
[2019-12-04] MEDS: HYDROCODONE/APAP 10-325 MG TABLET PO PRN (18:31)
[2019-12-04] MEDS: MIRTAZAPINE 15 MG TABLET PO SCH (21:05)
[2019-12-04] MEDS: ATORVASTATIN 10 MG TABLET PO SCH (21:05)
[2019-12-04 21:08] VITALS: BP 103/48
--- NOTE | 2019-12-04 21:56 | NUR ---
Coreg medication due not given. SBP 103/48. Will recheck and monitor.
[2019-12-05 04:42] VITALS: BP 111/62
[2019-12-05] MEDS: LEVOTHYROXINE SODIUM 112 MCG TABLET PO SCH (05:22)
[2019-12-05] MEDS: HYDROCODONE/APAP 10-325 MG TABLET PO PRN ×3 (05:22→23:13)
[2019-12-05 06:24] LABS: BASOPHILS # (AUTO) 0.1 K/uL (0.0-8.0); BASOPHILS % (AUTO) 0.4 % (0.0-2.0); EOSINOPHILS # (AUTO) 0.2 K/uL (0.0-0.7); EOSINOPHILS % (AUTO) 1.6 % (0.0-7.0); HEMATOCRIT 23.7 % (31.2-41.9); HEMOGLOBIN 7.9 g/dL (10.9-14.3); LYMPHOCYTES # (AUTO) 2.2 K/uL (20.0-40.0); LYMPHOCYTES % (AUTO) 16.7 % (20.5-51.5); MEAN CORPUSCULAR HEMOGLOBIN 34.8 uug (24.7-32.8); MEAN CORPUSCULAR HGB CONC 33 g/dL (32.3-35.6); MEAN CORPUSCULAR VOLUME 105.2 fL (75.5-95.3); MONOCYTES # (AUTO) 0.9 K/uL (2.0-10.0); NEUTROPHILS # (AUTO) 9.8 K/uL (1.8-8.9); NEUTROPHILS % (AUTO) 74.3 % (38.5-71.5); PLATELET COUNT (AUTO) 292 K/uL (179-408); WHITE BLOOD COUNT (AUTO) 13.2 K/uL (3.8-11.8)
[2019-12-05 06:35] LABS: RED BLOOD CELL COUNT(AUTO) 2.26 MIL/uL (3.63-4.92)
[2019-12-05 06:38] LABS: CREATININE 1.1 mg/dL (0.6-1.3); POTASSIUM 4.1 mmol/L (3.5-5.1)
[2019-12-05 07:30] VITALS: BP 109/52
[2019-12-05] MEDS ORDERED: LEVOTHYROXINE SODIUM 88 MCG TABLET PO SCH (07:30)
[2019-12-05] MEDS ORDERED: LEVOTHYROXINE SODIUM 125 MCG TABLET PO SCH (07:30)
[2019-12-05] MEDS: CITALOPRAM 10 MG TABLET PO SCH (08:03)
[2019-12-05] MEDS: ACIDOPHILUS/BULGARICUS CHEW TAB PO SCH (08:04)
[2019-12-05] MEDS: ASPIRIN 81 MG TAB.CHEW PO SCH (08:04)
[2019-12-05] MEDS: QUETIAPINE FUMARATE 25 MG TABLET PO SCH ×2 (08:04→17:07)
[2019-12-05] MEDS: ALLOPURINOL 100 MG TABLET PO SCH (08:04)
[2019-12-05] MEDS: OXYCODONE HCL 10 MG TAB.SR.12H PO SCH ×2 (08:04→20:54)
[2019-12-05] MEDS: CARVEDILOL 3.125 MG TABLET PO SCH ×2 (08:05→20:54)
[2019-12-05] MEDS: MINERAL OIL/PETROLATUM,WHITE 57 GM TUBE TP SCH (08:05)
[2019-12-05] MEDS: Z GUARD REMEDY PASTE 57 GM TUBE TOP PRN (08:20)
[2019-12-05] MEDS: ENOXAPARIN SODIUM 40 MG/0.4 ML DISP.SYRIN SQ SCH (08:23)
[2019-12-05] MEDS: GLUCERNA SHAKE 237 ML CAN PO SCH ×2 (08:24→17:06)
[2019-12-05 15:30] VITALS: BP 128/67
--- NOTE | 2019-12-05 15:38 | NUR ---
patient is confuse, disorganized thoughts constantly talking, removed her clothes, try to comfort, repositioned, pain medication administered, incision site is clean and dry, kayleigh are intact, continue to monitor
[2019-12-05 20:10] VITALS: BP 111/56
[2019-12-05] MEDS: MIRTAZAPINE 15 MG TABLET PO SCH (20:54)
[2019-12-05] MEDS: ATORVASTATIN 10 MG TABLET PO SCH (20:55)
[2019-12-05] MEDS: MAGNESIUM HYDROXIDE 30 ML LIQUID UDC PO PRN (21:03)
--- NOTE | 2019-12-05 22:00 | NUR ---
Received Pt lying in bed, sleeping, very confused and disoriented. Re oriented multiple times. On RA no s/s of acute distress noted, No SOB noted. Hip incision intact with kayleigh and open to air. All due medication administered and tolerated well. Patient removed her clothes multiple times. Repositioned for comfort, BLE elevated with pillow. All needs attended to. Safety measure in place. All personal items and call light within pt reach. Will continue to monitor.
[2019-12-06 04:30] VITALS: BP 148/54
[2019-12-06] MEDS: LEVOTHYROXINE SODIUM 112 MCG TABLET PO SCH (06:07)
[2019-12-06 07:17] LABS: LYMPHOCYTES % (AUTO) 20.6 % (20.5-51.5); MONOCYTES # (AUTO) 0.6 K/uL (2.0-10.0)
[2019-12-06 07:18] LABS: BASOPHILS % (AUTO) 0.4 % (0.0-2.0); EOSINOPHILS # (AUTO) 0.1 K/uL (0.0-0.7); EOSINOPHILS % (AUTO) 1.4 % (0.0-7.0); HEMATOCRIT 22.2 % (31.2-41.9); MEAN CORPUSCULAR HEMOGLOBIN 34.9 uug (24.7-32.8); MEAN CORPUSCULAR HGB CONC 33 g/dL (32.3-35.6); MEAN CORPUSCULAR VOLUME 104.4 fL (75.5-95.3); MONOCYTES % (AUTO) 5.8 % (0.0-11.0); NEUTROPHILS # (AUTO) 6.9 K/uL (1.8-8.9); NEUTROPHILS % (AUTO) 71.8 % (38.5-71.5); PLATELET COUNT (AUTO) 284 K/uL (179-408); WHITE BLOOD COUNT (AUTO) 9.6 K/uL (3.8-11.8)
[2019-12-06 07:30] VITALS: BP 111/52
[2019-12-06 07:31] LABS: CREATININE 0.9 mg/dL (0.6-1.3); POTASSIUM 4.4 mmol/L (3.5-5.1)
[2019-12-06 07:35] LABS: RED BLOOD CELL COUNT(AUTO) 2.13 MIL/uL (3.63-4.92)
[2019-12-06 07:38] LABS: HEMOGLOBIN 7.4 g/dL (10.9-14.3)
--- NOTE | 2019-12-06 08:00 | NUR ---
MD informed regarding lab result with an order to repeat HH after 4 hrs. VS stable. No acute distress noted and will continue with care.
[2019-12-06] MEDS: CITALOPRAM 10 MG TABLET PO SCH (09:04)
[2019-12-06] MEDS: OXYCODONE HCL 10 MG TAB.SR.12H PO SCH ×2 (09:05→21:03)
[2019-12-06] MEDS: ASPIRIN 81 MG TAB.CHEW PO SCH (09:06)
[2019-12-06] MEDS: QUETIAPINE FUMARATE 25 MG TABLET PO SCH ×2 (09:06→17:40)
[2019-12-06] MEDS: ALLOPURINOL 100 MG TABLET PO SCH (09:06)
[2019-12-06] MEDS: ACIDOPHILUS/BULGARICUS CHEW TAB PO SCH (09:06)
[2019-12-06] MEDS: CARVEDILOL 3.125 MG TABLET PO SCH ×2 (09:06→21:04)
[2019-12-06] MEDS: ENOXAPARIN SODIUM 40 MG/0.4 ML DISP.SYRIN SQ SCH (09:10)
--- NOTE | 2019-12-06 10:15 | NUR ---
Received patient in room, Pt. is AAO x 1, confused; able to say needs at times. Monitored closely for safety. Vital signs stable for patient. Patient noted moaning with pain at the beginning of the shift routine pain pill of Oxycontin 10mg 1 tab PO q 12hrs administered and effective. All other due meds administered with apple sauce and tolerated well. Patient on PT/OT therapy. Skin kept clean and dry, needs attended, safety measures in place, bed alarm on for safety and will continue with care.
[2019-12-06] MEDS: GLUCERNA SHAKE 237 ML CAN PO SCH ×2 (10:37→17:40)
[2019-12-06 12:42] LABS: HEMOGLOBIN 7.5 g/dL (10.9-14.3)
[2019-12-06 16:16] VITALS: BP 116/56
--- NOTE | 2019-12-06 16:28 | NUR ---
Informed MD regarding H&H lab result and with no new order for now. Will continue with care.
--- NOTE | 2019-12-06 16:31 | NUR ---
Patient resting comfortably at this time and calm. Vital signs stable.
[2019-12-06] MEDS: MINERAL OIL/PETROLATUM,WHITE 57 GM TUBE TP SCH (17:41)
--- NOTE | 2019-12-06 19:29 | NUR ---
End of shift report given to PM nurse.
--- NOTE | 2019-12-06 19:55 | NUR ---
INDIVIDUALIZED PLAN OF CARE
[2019-12-06 20:00] VITALS: BP 106/62
[2019-12-06] MEDS: MIRTAZAPINE 15 MG TABLET PO SCH (21:03)
[2019-12-06] MEDS: ATORVASTATIN 10 MG TABLET PO SCH (21:04)
--- NOTE | 2019-12-06 22:00 | NUR ---
Received Pt lying in bed, sleeping, need reorientation. On RA no s/s of acute distress noted, No SOB noted. Hip incision intact with kayleigh and open to air. All due medication administered and tolerated well. Kept clean dry and comfortable, Repositioned for comfort, BLE elevated with pillow. All needs attended to. Safety measure in place. All personal items and call light within pt reach. Will continue to monitor.
[2019-12-07 04:30] VITALS: BP 101/66
[2019-12-07] MEDS: LEVOTHYROXINE SODIUM 112 MCG TABLET PO SCH (06:12)
[2019-12-07 07:44] LABS: BASOPHILS % (AUTO) 0.4 % (0.0-2.0); EOSINOPHILS # (AUTO) 0.1 K/uL (0.0-0.7); HEMATOCRIT 21.3 % (31.2-41.9); MEAN CORPUSCULAR HEMOGLOBIN 35.4 uug (24.7-32.8); MEAN CORPUSCULAR HGB CONC 34 g/dL (32.3-35.6); MEAN CORPUSCULAR VOLUME 105.3 fL (75.5-95.3); MONOCYTES # (AUTO) 0.6 K/uL (2.0-10.0); MONOCYTES % (AUTO) 6.4 % (0.0-11.0); NEUTROPHILS # (AUTO) 6.9 K/uL (1.8-8.9); NEUTROPHILS % (AUTO) 71.2 % (38.5-71.5); PLATELET COUNT (AUTO) 284 K/uL (179-408); WHITE BLOOD COUNT (AUTO) 9.6 K/uL (3.8-11.8)
[2019-12-07 07:53] LABS: CREATININE 1.1 mg/dL (0.6-1.3); POTASSIUM 4.6 mmol/L (3.5-5.1)
[2019-12-07 07:58] LABS: RED BLOOD CELL COUNT(AUTO) 2.02 MIL/uL (3.63-4.92)
[2019-12-07 08:02] LABS: HEMOGLOBIN 7.2 g/dL (10.9-14.3)
[2019-12-07] MEDS: ASPIRIN 81 MG TAB.CHEW PO SCH (09:19)
[2019-12-07] MEDS: CARVEDILOL 3.125 MG TABLET PO SCH ×2 (09:19→20:49)
[2019-12-07] MEDS: ALLOPURINOL 100 MG TABLET PO SCH (09:19)
[2019-12-07] MEDS: QUETIAPINE FUMARATE 25 MG TABLET PO SCH ×2 (09:19→17:21)
[2019-12-07] MEDS: ACIDOPHILUS/BULGARICUS CHEW TAB PO SCH (09:19)
[2019-12-07] MEDS: CITALOPRAM 10 MG TABLET PO SCH (09:20)
[2019-12-07] MEDS: OXYCODONE HCL 10 MG TAB.SR.12H PO SCH ×2 (09:21→20:48)
[2019-12-07] MEDS: GLUCERNA SHAKE 237 ML CAN PO SCH ×2 (09:28→17:22)
--- NOTE | 2019-12-07 09:30 | NUR ---
Patient sitting up on the wheelchair with occupational therapist on the way to rehab gym. Due medications administered and tolerated well.
[2019-12-07] MEDS: ENOXAPARIN SODIUM 40 MG/0.4 ML DISP.SYRIN SQ SCH (09:36)
[2019-12-07] MEDS: MINERAL OIL/PETROLATUM,WHITE 57 GM TUBE TP SCH (09:39)
--- NOTE | 2019-12-07 09:45 | NUR ---
Informed Dr. Gallagher regarding Hgb 7.2 and Hct 21.3 with no new order at this time.
[2019-12-07 10:03] VITALS: BP 137/47
[2019-12-07] MEDS: HYDROCODONE/APAP 10-325 MG TABLET PO PRN (10:43)
[2019-12-07 15:08] VITALS: BP 102/46
--- NOTE | 2019-12-07 20:26 | NUR ---
INTERDISCIPLINARY TEAM CONFERENCE
[2019-12-07] MEDS: MIRTAZAPINE 15 MG TABLET PO SCH (20:48)
[2019-12-07] MEDS: ATORVASTATIN 10 MG TABLET PO SCH (20:49)
[2019-12-07 21:46] VITALS: BP 129/50
[2019-12-08] MEDS: LEVOTHYROXINE SODIUM 112 MCG TABLET PO SCH (05:21)
[2019-12-08 05:31] VITALS: BP 96/46
--- NOTE | 2019-12-08 05:56 | NUR ---
Woke up with good smile. Asking water for the first, swallows better than last night. Drunk a lot without any problem. Took Am meds early without difficulty, very cooperative and pleasant. This must be a good day, more alert and cooperative.
[2019-12-08 07:27] LABS: POTASSIUM 4.5 mmol/L (3.5-5.1)
[2019-12-08 07:34] LABS: BASOPHILS # (AUTO) 0.1 K/uL (0.0-8.0); BASOPHILS % (AUTO) 0.6 % (0.0-2.0); EOSINOPHILS # (AUTO) 0.2 K/uL (0.0-0.7); EOSINOPHILS % (AUTO) 1.7 % (0.0-7.0); HEMATOCRIT 22.4 % (31.2-41.9); HEMOGLOBIN 7.5 g/dL (10.9-14.3); LYMPHOCYTES # (AUTO) 2.1 K/uL (20.0-40.0); LYMPHOCYTES % (AUTO) 24.1 % (20.5-51.5); MEAN CORPUSCULAR HEMOGLOBIN 35.3 uug (24.7-32.8); MEAN CORPUSCULAR HGB CONC 34 g/dL (32.3-35.6); MEAN CORPUSCULAR VOLUME 105.5 fL (75.5-95.3); MONOCYTES # (AUTO) 0.7 K/uL (2.0-10.0); MONOCYTES % (AUTO) 8.1 % (0.0-11.0); NEUTROPHILS # (AUTO) 5.7 K/uL (1.8-8.9); NEUTROPHILS % (AUTO) 65.5 % (38.5-71.5); PLATELET COUNT (AUTO) 294 K/uL (179-408); WHITE BLOOD COUNT (AUTO) 8.7 K/uL (3.8-11.8)
[2019-12-08 07:37] LABS: RED BLOOD CELL COUNT(AUTO) 2.12 MIL/uL (3.63-4.92)
[2019-12-08 08:00] VITALS: BP 116/49
[2019-12-08] MEDS: CITALOPRAM 10 MG TABLET PO SCH (08:00)
[2019-12-08] MEDS: ALLOPURINOL 100 MG TABLET PO SCH (08:00)
[2019-12-08] MEDS: ASPIRIN 81 MG TAB.CHEW PO SCH (08:00)
[2019-12-08] MEDS: ACIDOPHILUS/BULGARICUS CHEW TAB PO SCH (08:00)
[2019-12-08] MEDS: QUETIAPINE FUMARATE 25 MG TABLET PO SCH ×2 (08:00→16:07)
[2019-12-08] MEDS: OXYCODONE HCL 10 MG TAB.SR.12H PO SCH ×2 (08:00→20:35)
[2019-12-08] MEDS: GLUCERNA SHAKE 237 ML CAN PO SCH ×2 (08:01→16:07)
[2019-12-08] MEDS: CARVEDILOL 3.125 MG TABLET PO SCH ×2 (08:01→20:36)
[2019-12-08] MEDS: ENOXAPARIN SODIUM 40 MG/0.4 ML DISP.SYRIN SQ SCH (08:06)
[2019-12-08] MEDS: Z GUARD REMEDY PASTE 57 GM TUBE TOP PRN (08:07)
[2019-12-08] MEDS: MINERAL OIL/PETROLATUM,WHITE 57 GM TUBE TP SCH (08:09)
--- NOTE | 2019-12-08 14:57 | NUR ---
no changes noted, alert, oriented to her baseline, tolerated with PT, OT well, kept clean and dry, repositioned every 2 hours, no skin issues noted
[2019-12-08] MEDS: HYDROCODONE/APAP 10-325 MG TABLET PO PRN (15:03)
[2019-12-08 16:00] VITALS: BP 120/47
[2019-12-08 19:56] VITALS: BP 105/48
[2019-12-08] MEDS: MIRTAZAPINE 15 MG TABLET PO SCH (20:36)
[2019-12-08] MEDS: ATORVASTATIN 10 MG TABLET PO SCH (20:36)
[2019-12-09 05:16] VITALS: BP 123/52
[2019-12-09] MEDS: LEVOTHYROXINE SODIUM 112 MCG TABLET PO SCH (05:49)
--- NOTE | 2019-12-09 06:09 | NUR ---
Shift End Report: Slept good. Awakened in good spirit, more alert, smiling and happy. Very conversant, cooperative and able to make needs known. No significant event reported all night. Continue current rehab plan of care
[2019-12-09 06:58] LABS: CREATININE 1.1 mg/dL (0.6-1.3); MAGNESIUM 2.1 mg/dL (1.8-2.4); PHOSPHOROUS 3.2 mg/dL (2.5-4.9)
[2019-12-09 07:22] LABS: BASOPHILS % (AUTO) 0.3 % (0.0-2.0); EOSINOPHILS # (AUTO) 0.1 K/uL (0.0-0.7); EOSINOPHILS % (AUTO) 1.6 % (0.0-7.0); HEMATOCRIT 22.7 % (31.2-41.9); HEMOGLOBIN 7.6 g/dL (10.9-14.3); LYMPHOCYTES # (AUTO) 1.3 K/uL (20.0-40.0); LYMPHOCYTES % (AUTO) 16.3 % (20.5-51.5); MEAN CORPUSCULAR HEMOGLOBIN 35.1 uug (24.7-32.8); MEAN CORPUSCULAR HGB CONC 33 g/dL (32.3-35.6); MEAN CORPUSCULAR VOLUME 105.2 fL (75.5-95.3); MONOCYTES # (AUTO) 0.5 K/uL (2.0-10.0); MONOCYTES % (AUTO) 6.3 % (0.0-11.0); NEUTROPHILS # (AUTO) 6.1 K/uL (1.8-8.9); NEUTROPHILS % (AUTO) 75.5 % (38.5-71.5); PLATELET COUNT (AUTO) 312 K/uL (179-408); WHITE BLOOD COUNT (AUTO) 8.1 K/uL (3.8-11.8)
[2019-12-09 07:26] LABS: RED BLOOD CELL COUNT(AUTO) 2.16 MIL/uL (3.63-4.92)
[2019-12-09 07:30] VITALS: BP 100/51
[2019-12-09] MEDS: OXYCODONE HCL 10 MG TAB.SR.12H PO SCH ×2 (09:03→20:20)
[2019-12-09] MEDS: ALLOPURINOL 100 MG TABLET PO SCH (09:35)
[2019-12-09] MEDS: CITALOPRAM 10 MG TABLET PO SCH (09:35)
[2019-12-09] MEDS: ACIDOPHILUS/BULGARICUS CHEW TAB PO SCH (09:35)
[2019-12-09] MEDS: QUETIAPINE FUMARATE 25 MG TABLET PO SCH ×2 (09:35→17:27)
[2019-12-09] MEDS: ASPIRIN 81 MG TAB.CHEW PO SCH (09:36)
[2019-12-09] MEDS: CARVEDILOL 3.125 MG TABLET PO SCH ×2 (09:36→20:19)
[2019-12-09] MEDS: ENOXAPARIN SODIUM 40 MG/0.4 ML DISP.SYRIN SQ SCH (09:38)
[2019-12-09] MEDS: GLUCERNA SHAKE 237 ML CAN PO SCH ×2 (09:40→17:28)
[2019-12-09 15:01] VITALS: BP 108/50
[2019-12-09] MEDS: MINERAL OIL/PETROLATUM,WHITE 57 GM TUBE TP SCH (17:30)
[2019-12-09 20:00] VITALS: BP 105/55
--- NOTE | 2019-12-09 20:00 | NUR ---
Received patient lying in bed confused and disoriented. No s/s of acute distress. Attempted to reorient the patient multiple times. Pt is on RA no s/s of SOB. Right hip incision open to air, intact, clean and dry. BLE elevated. Bed locked and low. Bed alarm on and call light within reach. Safety measures in place and will continue to monitor.
[2019-12-09] MEDS: MIRTAZAPINE 15 MG TABLET PO SCH (20:20)
[2019-12-09] MEDS: ATORVASTATIN 10 MG TABLET PO SCH (20:20)
[2019-12-09] MEDS: MAGNESIUM HYDROXIDE 30 ML LIQUID UDC PO PRN (20:20)
[2019-12-09] MEDS: HYDROCODONE/APAP 10-325 MG TABLET PO PRN (21:26)
[2019-12-10 04:00] VITALS: BP 106/54
[2019-12-10] MEDS: LEVOTHYROXINE SODIUM 112 MCG TABLET PO SCH ×2 (06:29→06:46)
[2019-12-10 08:00] VITALS: BP 103/49
[2019-12-10] MEDS: ACIDOPHILUS/BULGARICUS CHEW TAB PO SCH (08:49)
[2019-12-10] MEDS: QUETIAPINE FUMARATE 25 MG TABLET PO SCH ×2 (08:50→17:34)
[2019-12-10] MEDS: CITALOPRAM 10 MG TABLET PO SCH (08:50)
[2019-12-10] MEDS: ALLOPURINOL 100 MG TABLET PO SCH (08:50)
[2019-12-10] MEDS: ASPIRIN 81 MG TAB.CHEW PO SCH (08:50)
[2019-12-10] MEDS: OXYCODONE HCL 10 MG TAB.SR.12H PO SCH ×2 (08:50→20:37)
[2019-12-10] MEDS: ENOXAPARIN SODIUM 40 MG/0.4 ML DISP.SYRIN SQ SCH (08:53)
[2019-12-10] MEDS: CARVEDILOL 3.125 MG TABLET PO SCH ×2 (09:00→20:35)
[2019-12-10] MEDS: GLUCERNA SHAKE 237 ML CAN PO SCH ×2 (09:13→17:34)
[2019-12-10] MEDS: MINERAL OIL/PETROLATUM,WHITE 57 GM TUBE TP SCH (09:14)
[2019-12-10 12:53] VITALS: BP 103/41
[2019-12-10 15:11] LABS: POTASSIUM 4.4 mmol/L (3.5-5.1)
[2019-12-10 15:15] LABS: BASOPHILS % (AUTO) 0.4 % (0.0-2.0); EOSINOPHILS # (AUTO) 0.1 K/uL (0.0-0.7); EOSINOPHILS % (AUTO) 1.2 % (0.0-7.0); HEMATOCRIT 24.3 % (31.2-41.9); LYMPHOCYTES # (AUTO) 1.7 K/uL (20.0-40.0); MEAN CORPUSCULAR HEMOGLOBIN 34.9 uug (24.7-32.8); MEAN CORPUSCULAR HGB CONC 33 g/dL (32.3-35.6); MEAN CORPUSCULAR VOLUME 105.6 fL (75.5-95.3); MONOCYTES # (AUTO) 0.4 K/uL (2.0-10.0); MONOCYTES % (AUTO) 4.1 % (0.0-11.0); NEUTROPHILS # (AUTO) 7.6 K/uL (1.8-8.9); NEUTROPHILS % (AUTO) 77.3 % (38.5-71.5); PLATELET COUNT (AUTO) 390 K/uL (179-408); WHITE BLOOD COUNT (AUTO) 9.8 K/uL (3.8-11.8)
[2019-12-10 16:51] VITALS: BP 122/50
--- NOTE | 2019-12-10 18:36 | NUR ---
Patient stable throughout shift awake confused, talking to self at times. On RA with no SOB or distress at this time. Encouraged to finish Glucerna. Placed dressing on left leg incision but patient keeps removing it. Safety and aspiration precaution in place. No other complaints at this time
[2019-12-10 20:28] VITALS: BP 108/43
[2019-12-10] MEDS: MIRTAZAPINE 15 MG TABLET PO SCH (20:36)
[2019-12-10] MEDS: ATORVASTATIN 10 MG TABLET PO SCH (20:37)
[2019-12-11 04:52] VITALS: BP 102/43
[2019-12-11] MEDS: LEVOTHYROXINE SODIUM 112 MCG TABLET PO SCH (06:13)
[2019-12-11 06:29] LABS: BASOPHILS % (AUTO) 0.7 % (0.0-2.0); EOSINOPHILS # (AUTO) 0.2 K/uL (0.0-0.7); EOSINOPHILS % (AUTO) 3.3 % (0.0-7.0); HEMATOCRIT 22.1 % (31.2-41.9); HEMOGLOBIN 7.5 g/dL (10.9-14.3); LYMPHOCYTES # (AUTO) 1.9 K/uL (20.0-40.0); LYMPHOCYTES % (AUTO) 32.1 % (20.5-51.5); MEAN CORPUSCULAR HGB CONC 34 g/dL (32.3-35.6); MEAN CORPUSCULAR VOLUME 105.7 fL (75.5-95.3); MONOCYTES # (AUTO) 0.4 K/uL (2.0-10.0); MONOCYTES % (AUTO) 7.4 % (0.0-11.0); NEUTROPHILS # (AUTO) 3.3 K/uL (1.8-8.9); NEUTROPHILS % (AUTO) 56.5 % (38.5-71.5); PLATELET COUNT (AUTO) 371 K/uL (179-408); WHITE BLOOD COUNT (AUTO) 5.8 K/uL (3.8-11.8)
[2019-12-11 06:35] LABS: POTASSIUM 4.1 mmol/L (3.5-5.1)
[2019-12-11 06:44] LABS: RED BLOOD CELL COUNT(AUTO) 2.09 MIL/uL (3.63-4.92)
--- NOTE | 2019-12-11 07:37 | NUR ---
Received patient in room sleeping comfortably at this time. NO acute distress noted. Vital sings stable. No c/o pain at this time. Safety measures in place and will continue with care.
[2019-12-11] MEDS: OXYCODONE HCL 10 MG TAB.SR.12H PO SCH ×2 (08:41→20:42)
[2019-12-11] MEDS: CARVEDILOL 3.125 MG TABLET PO SCH ×2 (09:00→20:43)
[2019-12-11 09:44] VITALS: BP 98/73
[2019-12-11] MEDS: ALLOPURINOL 100 MG TABLET PO SCH (10:07)
[2019-12-11] MEDS: ASPIRIN 81 MG TAB.CHEW PO SCH (10:07)
[2019-12-11] MEDS: CITALOPRAM 10 MG TABLET PO SCH (10:07)
[2019-12-11] MEDS: ACIDOPHILUS/BULGARICUS CHEW TAB PO SCH (10:07)
[2019-12-11] MEDS: QUETIAPINE FUMARATE 25 MG TABLET PO SCH ×2 (10:08→17:49)
[2019-12-11] MEDS: ENOXAPARIN SODIUM 40 MG/0.4 ML DISP.SYRIN SQ SCH (10:09)
[2019-12-11] MEDS: GLUCERNA SHAKE 237 ML CAN PO SCH ×2 (10:25→17:49)
[2019-12-11] MEDS: MINERAL OIL/PETROLATUM,WHITE 57 GM TUBE TP SCH (14:19)
[2019-12-11] MEDS: MAGNESIUM HYDROXIDE 30 ML LIQUID UDC PO PRN (15:34)
[2019-12-11 15:54] VITALS: BP 108/50
[2019-12-11 20:06] VITALS: BP 109/49
[2019-12-11] MEDS: MIRTAZAPINE 15 MG TABLET PO SCH (20:42)
[2019-12-11] MEDS: ATORVASTATIN 10 MG TABLET PO SCH (20:43)
[2019-12-12 04:06] VITALS: BP 140/63
[2019-12-12] MEDS: LEVOTHYROXINE SODIUM 112 MCG TABLET PO SCH (06:39)
[2019-12-12 08:00] VITALS: BP 108/48
[2019-12-12] MEDS: QUETIAPINE FUMARATE 25 MG TABLET PO SCH ×2 (09:31→16:55)
[2019-12-12] MEDS: ALLOPURINOL 100 MG TABLET PO SCH (09:31)
[2019-12-12] MEDS: CITALOPRAM 10 MG TABLET PO SCH (09:31)
[2019-12-12] MEDS: ASPIRIN 81 MG TAB.CHEW PO SCH (09:31)
[2019-12-12] MEDS: ACIDOPHILUS/BULGARICUS CHEW TAB PO SCH (09:31)
[2019-12-12] MEDS: CARVEDILOL 3.125 MG TABLET PO SCH ×2 (09:32→20:32)
[2019-12-12] MEDS: GLUCERNA SHAKE 237 ML CAN PO SCH ×2 (09:35→16:55)
[2019-12-12] MEDS: OXYCODONE HCL 10 MG TAB.SR.12H PO SCH ×2 (09:35→20:31)
[2019-12-12] MEDS: MINERAL OIL/PETROLATUM,WHITE 57 GM TUBE TP SCH (09:36)
[2019-12-12] MEDS: ENOXAPARIN SODIUM 40 MG/0.4 ML DISP.SYRIN SQ SCH (09:37)
[2019-12-12 12:20] LABS: BASOPHILS # (AUTO) 0.1 K/uL (0.0-8.0); BASOPHILS % (AUTO) 0.8 % (0.0-2.0); EOSINOPHILS # (AUTO) 0.2 K/uL (0.0-0.7); EOSINOPHILS % (AUTO) 2.2 % (0.0-7.0); HEMATOCRIT 23.2 % (31.2-41.9); HEMOGLOBIN 7.9 g/dL (10.9-14.3); LYMPHOCYTES # (AUTO) 1.3 K/uL (20.0-40.0); LYMPHOCYTES % (AUTO) 16.5 % (20.5-51.5); MEAN CORPUSCULAR HGB CONC 34 g/dL (32.3-35.6); MEAN CORPUSCULAR VOLUME 105.5 fL (75.5-95.3); MONOCYTES # (AUTO) 0.5 K/uL (2.0-10.0); MONOCYTES % (AUTO) 6.5 % (0.0-11.0); NEUTROPHILS # (AUTO) 5.9 K/uL (1.8-8.9); PLATELET COUNT (AUTO) 408 K/uL (179-408); WHITE BLOOD COUNT (AUTO) 7.9 K/uL (3.8-11.8)
[2019-12-12 12:29] LABS: RED BLOOD CELL COUNT(AUTO) 2.19 MIL/uL (3.63-4.92)
[2019-12-12 16:15] VITALS: BP 119/52
[2019-12-12 20:20] VITALS: BP 118/66
[2019-12-12] MEDS: ATORVASTATIN 10 MG TABLET PO SCH (20:31)
[2019-12-12] MEDS: MIRTAZAPINE 15 MG TABLET PO SCH (20:31)
[2019-12-13 05:00] VITALS: BP 108/62
--- NOTE | 2019-12-13 05:06 | NUR ---
awake upon initial rounds. needs attended. VSS Kept comfortable. Slept @ long intervals. VSS Tolerated po meds well. Continent of bowel and bladder. Will monitor patient. Right hip kayleigh MILL STENCILER. No complaints presented during shift.
[2019-12-13] MEDS: LEVOTHYROXINE SODIUM 112 MCG TABLET PO SCH (06:25)
[2019-12-13 07:30] VITALS: BP 102/40
[2019-12-13] MEDS: ENOXAPARIN SODIUM 40 MG/0.4 ML DISP.SYRIN SQ SCH (09:00)
[2019-12-13] MEDS: ASPIRIN 81 MG TAB.CHEW PO SCH (09:42)
[2019-12-13] MEDS: OXYCODONE HCL 10 MG TAB.SR.12H PO SCH ×2 (09:44→21:30)
[2019-12-13] MEDS: CARVEDILOL 3.125 MG TABLET PO SCH ×2 (09:44→21:30)
[2019-12-13] MEDS: QUETIAPINE FUMARATE 25 MG TABLET PO SCH ×2 (09:44→17:38)
[2019-12-13] MEDS: ALLOPURINOL 100 MG TABLET PO SCH (09:45)
[2019-12-13] MEDS: CITALOPRAM 10 MG TABLET PO SCH (09:46)
[2019-12-13] MEDS: MINERAL OIL/PETROLATUM,WHITE 57 GM TUBE TP SCH (09:47)
[2019-12-13] MEDS: ACIDOPHILUS/BULGARICUS CHEW TAB PO SCH (09:48)
[2019-12-13] MEDS: GLUCERNA SHAKE 237 ML CAN PO SCH ×2 (09:49→17:38)
[2019-12-13 16:07] VITALS: BP 129/60
[2019-12-13 20:00] VITALS: BP 105/52
[2019-12-13] MEDS: MIRTAZAPINE 15 MG TABLET PO SCH (21:29)
[2019-12-13] MEDS: ATORVASTATIN 10 MG TABLET PO SCH (21:30)
[2019-12-14 04:43] VITALS: BP 125/63
[2019-12-14] MEDS: LEVOTHYROXINE SODIUM 112 MCG TABLET PO SCH (06:20)
[2019-12-14 08:00] VITALS: BP 111/49
[2019-12-14] MEDS: ACIDOPHILUS/BULGARICUS CHEW TAB PO SCH (08:18)
[2019-12-14] MEDS: QUETIAPINE FUMARATE 25 MG TABLET PO SCH ×2 (08:18→16:46)
[2019-12-14] MEDS: ASPIRIN 81 MG TAB.CHEW PO SCH (08:18)
[2019-12-14] MEDS: OXYCODONE HCL 10 MG TAB.SR.12H PO SCH ×2 (08:18→20:33)
[2019-12-14] MEDS: CITALOPRAM 10 MG TABLET PO SCH (08:18)
[2019-12-14] MEDS: ALLOPURINOL 100 MG TABLET PO SCH (08:18)
[2019-12-14] MEDS: CARVEDILOL 3.125 MG TABLET PO SCH ×2 (08:19→20:32)
[2019-12-14] MEDS: MINERAL OIL/PETROLATUM,WHITE 57 GM TUBE TP SCH (08:20)
[2019-12-14] MEDS: GLUCERNA SHAKE 237 ML CAN PO SCH ×2 (08:20→16:46)
[2019-12-14] MEDS: ENOXAPARIN SODIUM 40 MG/0.4 ML DISP.SYRIN SQ SCH (08:21)
--- NOTE | 2019-12-14 11:13 | NUR ---
PATIENT INCISION SITE NOTED WITH REDNESS, SPOKE TO DR WONG WITH ORDER TO REMOVE DOMITILA, AND CONTINUE TO MONITOR Addendum: 12/14/19 at 1444 by GIGI TYLER RN RN PATIENT HAVE NOTED TOUCHING HER INCISION SITE WITH HER HANDS, AND REMOVES THE DRESSING ALL THE TIME, UNABLE TO TEACH, BECAUSE OF COGNITIVE DEFICIT. CONTINUE TO MONITOR FOR ANY WORSENING SYMPTOMS
--- NOTE | 2019-12-14 14:25 | NUR ---
EXAMINED DOMITILA SITE BY DR COPELAND WELL, PATIENT PARTICIPATED WITH PT, OT SERVICES, PATIENT AMBULATED WITH PT, SKIN IS INTACT, DOMITILA REMOVED, STERI STRIPS APPLIES, CONTINUE TO MONITOR
[2019-12-14 16:09] VITALS: BP 117/60
--- NOTE | 2019-12-14 18:49 | NUR ---
INTERDISCIPLINARY TEAM CONFERENCE
--- NOTE | 2019-12-14 19:40 | NUR ---
Received awake, confused, restless, removing her gown, and linen. Very incoherent. Instructed TEST AND BALANCE ENGINEER to change patient due to bladder incontinence. Safety measures and fall prevention maintained, Continue care as planned.
[2019-12-14 20:00] VITALS: BP 135/53
[2019-12-14] MEDS: MIRTAZAPINE 15 MG TABLET PO SCH (20:32)
[2019-12-14] MEDS: ATORVASTATIN 10 MG TABLET PO SCH (20:33)
[2019-12-15 04:00] VITALS: BP 122/61
[2019-12-15] MEDS: LEVOTHYROXINE SODIUM 112 MCG TABLET PO SCH (06:21)
[2019-12-15 08:00] VITALS: BP 106/53
[2019-12-15] MEDS: OXYCODONE HCL 10 MG TAB.SR.12H PO SCH ×2 (08:32→20:16)
[2019-12-15] MEDS: CITALOPRAM 10 MG TABLET PO SCH (08:32)
[2019-12-15] MEDS: ASPIRIN 81 MG TAB.CHEW PO SCH (08:33)
[2019-12-15] MEDS: ALLOPURINOL 100 MG TABLET PO SCH (08:33)
[2019-12-15] MEDS: QUETIAPINE FUMARATE 25 MG TABLET PO SCH ×2 (08:33→16:05)
[2019-12-15] MEDS: CARVEDILOL 3.125 MG TABLET PO SCH ×2 (08:34→20:16)
[2019-12-15] MEDS: ACIDOPHILUS/BULGARICUS CHEW TAB PO SCH (08:34)
[2019-12-15] MEDS: GLUCERNA SHAKE 237 ML CAN PO SCH ×2 (08:34→16:05)
[2019-12-15] MEDS: ENOXAPARIN SODIUM 40 MG/0.4 ML DISP.SYRIN SQ SCH (08:35)
[2019-12-15] MEDS: MINERAL OIL/PETROLATUM,WHITE 57 GM TUBE TP SCH (08:36)
--- NOTE | 2019-12-15 15:00 | NUR ---
no changes noted, incision site is still slightly red, but no odor, no drainage noted, continue to monitor. Addendum: 12/15/19 at 1850 by GIGI TYLER RN, RN incision site noted much better than yesterday, decreased in redness noted,continue to monitor
[2019-12-15] MEDS: MAGNESIUM HYDROXIDE 30 ML LIQUID UDC PO PRN (15:11)
[2019-12-15 15:12] VITALS: BP 118/48
--- NOTE | 2019-12-15 19:40 | NUR ---
Received Pt lying in bed, sleeping, need reorientation. On RA no s/s of acute distress noted, No SOB noted.call light with in reach . All needs attended to. Safety measure in place. All personal items and call light within pt reach. Will continue to monitor.
[2019-12-15] MEDS: ATORVASTATIN 10 MG TABLET PO SCH (20:16)
[2019-12-15] MEDS: MIRTAZAPINE 15 MG TABLET PO SCH (20:16)
[2019-12-15 20:30] VITALS: BP 102/49
[2019-12-16 04:36] VITALS: BP 116/41
[2019-12-16] MEDS: LEVOTHYROXINE SODIUM 112 MCG TABLET PO SCH (06:16)
[2019-12-16 08:00] VITALS: BP 98/49
[2019-12-16] MEDS: QUETIAPINE FUMARATE 25 MG TABLET PO SCH ×2 (08:36→16:44)
[2019-12-16] MEDS: ALLOPURINOL 100 MG TABLET PO SCH (08:38)
[2019-12-16] MEDS: GLUCERNA SHAKE 237 ML CAN PO SCH ×2 (08:39→17:32)
[2019-12-16] MEDS: ACIDOPHILUS/BULGARICUS CHEW TAB PO SCH (08:39)
[2019-12-16] MEDS: ASPIRIN 81 MG TAB.CHEW PO SCH (08:39)
[2019-12-16] MEDS: CITALOPRAM 10 MG TABLET PO SCH (08:39)
[2019-12-16] MEDS: ENOXAPARIN SODIUM 40 MG/0.4 ML DISP.SYRIN SQ SCH (08:42)
[2019-12-16] MEDS: MINERAL OIL/PETROLATUM,WHITE 57 GM TUBE TP SCH (08:48)
--- NOTE | 2019-12-16 09:00 | NUR ---
Patient's BP 98/49, will hold Carvedilol for now. Will check BP again
[2019-12-16] MEDS: OXYCODONE HCL 10 MG TAB.SR.12H PO SCH ×2 (09:58→20:11)
[2019-12-16 13:20] VITALS: BP 104/49
[2019-12-16] MEDS: CARVEDILOL 3.125 MG TABLET PO SCH ×2 (14:37→20:13)
[2019-12-16 16:00] VITALS: BP 106/52
--- NOTE | 2019-12-16 17:00 | NUR ---
Patient in bed confused and noticed that patient removed steri strips on right thigh. Tried to open the incision.
[2019-12-16] MEDS: HYDROCODONE/APAP 10-325 MG TABLET PO PRN (18:29)
[2019-12-16] MEDS: MIRTAZAPINE 15 MG TABLET PO SCH (20:11)
[2019-12-16] MEDS: ATORVASTATIN 10 MG TABLET PO SCH (20:11)
[2019-12-16 20:50] VITALS: BP 103/44
[2019-12-17 04:35] VITALS: BP 99/47
[2019-12-17] MEDS: LEVOTHYROXINE SODIUM 112 MCG TABLET PO SCH (06:08)
[2019-12-17 08:28] VITALS: BP 109/45
[2019-12-17] MEDS: CARVEDILOL 3.125 MG TABLET PO SCH ×2 (09:00→20:45)
[2019-12-17] MEDS: ASPIRIN 81 MG TAB.CHEW PO SCH (09:12)
[2019-12-17] MEDS: CITALOPRAM 10 MG TABLET PO SCH (09:13)
[2019-12-17] MEDS: QUETIAPINE FUMARATE 25 MG TABLET PO SCH ×2 (09:13→16:59)
[2019-12-17] MEDS: ACIDOPHILUS/BULGARICUS CHEW TAB PO SCH (09:13)
[2019-12-17] MEDS: ALLOPURINOL 100 MG TABLET PO SCH (09:14)
[2019-12-17] MEDS: ENOXAPARIN SODIUM 40 MG/0.4 ML DISP.SYRIN SQ SCH (09:15)
[2019-12-17] MEDS: GLUCERNA SHAKE 237 ML CAN PO SCH ×2 (09:16→17:36)
[2019-12-17] MEDS: OXYCODONE HCL 10 MG TAB.SR.12H PO SCH ×2 (09:20→20:45)
[2019-12-17] MEDS: MINERAL OIL/PETROLATUM,WHITE 57 GM TUBE TP SCH (09:25)
[2019-12-17 15:30] VITALS: BP 129/60
[2019-12-17] MEDS: MAGNESIUM HYDROXIDE 30 ML LIQUID UDC PO PRN (16:59)
--- NOTE | 2019-12-17 18:00 | NUR ---
Patient alert, oriented to self with episodes of confusion, on room air. Patient compliant with medications. She participated with PT and OT. Assisted with her needs promptly.
[2019-12-17 20:43] VITALS: BP 109/51
[2019-12-17] MEDS: ATORVASTATIN 10 MG TABLET PO SCH (20:45)
[2019-12-17] MEDS: MIRTAZAPINE 15 MG TABLET PO SCH (20:45)
[2019-12-18 04:12] VITALS: BP 110/48
[2019-12-18] MEDS: LEVOTHYROXINE SODIUM 112 MCG TABLET PO SCH (06:15)
[2019-12-18] MEDS: ALLOPURINOL 100 MG TABLET PO SCH (08:11)
[2019-12-18] MEDS: ASPIRIN 81 MG TAB.CHEW PO SCH (08:11)
[2019-12-18] MEDS: ACIDOPHILUS/BULGARICUS CHEW TAB PO SCH (08:11)
[2019-12-18] MEDS: CITALOPRAM 10 MG TABLET PO SCH (08:12)
[2019-12-18] MEDS: QUETIAPINE FUMARATE 25 MG TABLET PO SCH ×2 (08:12→17:15)
[2019-12-18] MEDS: OXYCODONE HCL 10 MG TAB.SR.12H PO SCH ×2 (08:14→20:59)
[2019-12-18] MEDS: ENOXAPARIN SODIUM 40 MG/0.4 ML DISP.SYRIN SQ SCH (08:20)
[2019-12-18] MEDS: MINERAL OIL/PETROLATUM,WHITE 57 GM TUBE TP SCH (08:22)
[2019-12-18] MEDS: GLUCERNA SHAKE 237 ML CAN PO SCH ×2 (08:23→17:15)
[2019-12-18] MEDS: CARVEDILOL 3.125 MG TABLET PO SCH ×2 (08:23→20:59)
--- NOTE | 2019-12-18 09:00 | NUR ---
Patient awake, alert, oriented x 1, not in any form of distress, on room air. Assisted patient to sit on the wheelchair for breakfast. Due medications administered and tolerated well. Patient now with physical therapist for therapeutic exercises.
[2019-12-18 09:47] VITALS: BP 97/48
[2019-12-18 15:49] VITALS: BP 124/55
--- NOTE | 2019-12-18 19:40 | NUR ---
Sleeping during initial rounds. No s/s of respiratory distress. Safety precaution maintained. Continue care as planned.
[2019-12-18 20:06] VITALS: BP 109/51
[2019-12-18] MEDS: ATORVASTATIN 10 MG TABLET PO SCH (20:59)
[2019-12-18] MEDS: MIRTAZAPINE 15 MG TABLET PO SCH (20:59)
--- NOTE | 2019-12-19 00:14 | NUR ---
Received patient from PM nurse that was sent home. VSS. No abnormal findings relative to this patient. Agree with initial nurses assessment. Will continue to monitor and assess.
[2019-12-19 04:06] VITALS: BP 114/59
--- NOTE | 2019-12-19 05:22 | NUR ---
Patient slept very well. No reports of pain. Only requested a warm blanket. VSS. Bed at lowest position, call light within reach, wounds assessed and photographed. Will endorse to oncoming nurse.
[2019-12-19] MEDS: LEVOTHYROXINE SODIUM 112 MCG TABLET PO SCH (06:07)
[2019-12-19 07:44] LABS: BASOPHILS % (AUTO) 0.7 % (0.0-2.0); EOSINOPHILS # (AUTO) 0.1 K/uL (0.0-0.7); EOSINOPHILS % (AUTO) 2.6 % (0.0-7.0); HEMATOCRIT 26.1 % (31.2-41.9); HEMOGLOBIN 8.8 g/dL (10.9-14.3); LYMPHOCYTES # (AUTO) 1.6 K/uL (20.0-40.0); LYMPHOCYTES % (AUTO) 28.8 % (20.5-51.5); MEAN CORPUSCULAR HEMOGLOBIN 36.3 uug (24.7-32.8); MEAN CORPUSCULAR HGB CONC 34 g/dL (32.3-35.6); MEAN CORPUSCULAR VOLUME 107.2 fL (75.5-95.3); MONOCYTES # (AUTO) 0.4 K/uL (2.0-10.0); MONOCYTES % (AUTO) 7.6 % (0.0-11.0); NEUTROPHILS # (AUTO) 3.3 K/uL (1.8-8.9); NEUTROPHILS % (AUTO) 60.3 % (38.5-71.5); PLATELET COUNT (AUTO) 344 K/uL (179-408); WHITE BLOOD COUNT (AUTO) 5.4 K/uL (3.8-11.8)
[2019-12-19 07:45] LABS: BILIRUBIN,TOTAL 0.4 mg/dL (0.2-1.0); MAGNESIUM 2.4 mg/dL (1.8-2.4); PHOSPHOROUS 3.6 mg/dL (2.5-4.9); POTASSIUM 3.9 mmol/L (3.5-5.1); RED BLOOD CELL COUNT(AUTO) 2.44 MIL/uL (3.63-4.92); TOTAL PROTEIN, SERUM 7.1 g/dL (6.4-8.2)
[2019-12-19 08:00] VITALS: BP 118/50
[2019-12-19] MEDS: OXYCODONE HCL 10 MG TAB.SR.12H PO SCH ×2 (08:20→20:42)
[2019-12-19] MEDS: CITALOPRAM 10 MG TABLET PO SCH (08:20)
[2019-12-19] MEDS: ALLOPURINOL 100 MG TABLET PO SCH (08:21)
[2019-12-19] MEDS: CARVEDILOL 3.125 MG TABLET PO SCH ×2 (08:21→20:41)
[2019-12-19] MEDS: QUETIAPINE FUMARATE 25 MG TABLET PO SCH ×2 (08:21→16:24)
[2019-12-19] MEDS: ASPIRIN 81 MG TAB.CHEW PO SCH (08:21)
[2019-12-19] MEDS: ACIDOPHILUS/BULGARICUS CHEW TAB PO SCH (08:22)
[2019-12-19] MEDS: GLUCERNA SHAKE 237 ML CAN PO SCH ×2 (08:22→16:24)
[2019-12-19] MEDS: ENOXAPARIN SODIUM 40 MG/0.4 ML DISP.SYRIN SQ SCH (08:23)
[2019-12-19] MEDS: MINERAL OIL/PETROLATUM,WHITE 57 GM TUBE TP SCH (08:27)
[2019-12-19 16:05] VITALS: BP 112/55
[2019-12-19] MEDS: MAGNESIUM HYDROXIDE 30 ML LIQUID UDC PO PRN (16:24)
--- NOTE | 2019-12-19 17:11 | NUR ---
no changes noted during shift. needs attended timely, turned, repositioned every 2 hours, no skin issues noted
[2019-12-19 20:23] VITALS: BP 114/56
[2019-12-19] MEDS: MIRTAZAPINE 15 MG TABLET PO SCH (20:41)
[2019-12-19] MEDS: ATORVASTATIN 10 MG TABLET PO SCH (20:41)
--- NOTE | 2019-12-19 21:32 | NUR ---
Received pt resting in bed. AAO x1. No acute distress noted. Due meds given as ordered, given whole one at a time with apple sauce. Turned and repositioned. Both heels offloaded. Safety measures maintained. Call light and personal items within reach. Will continue to monitor.
[2019-12-20 04:52] VITALS: BP 110/56
[2019-12-20] MEDS: LEVOTHYROXINE SODIUM 112 MCG TABLET PO SCH (06:02)
[2019-12-20 07:30] VITALS: BP 105/47
[2019-12-20] MEDS: ACIDOPHILUS/BULGARICUS CHEW TAB PO SCH (08:08)
[2019-12-20] MEDS: ALLOPURINOL 100 MG TABLET PO SCH (08:08)
[2019-12-20] MEDS: QUETIAPINE FUMARATE 25 MG TABLET PO SCH ×2 (08:08→16:06)
[2019-12-20] MEDS: ASPIRIN 81 MG TAB.CHEW PO SCH (08:08)
[2019-12-20] MEDS: CARVEDILOL 3.125 MG TABLET PO SCH (08:09)
[2019-12-20] MEDS: CITALOPRAM 10 MG TABLET PO SCH (08:09)
[2019-12-20] MEDS: OXYCODONE HCL 10 MG TAB.SR.12H PO SCH (08:10)
[2019-12-20] MEDS: GLUCERNA SHAKE 237 ML CAN PO SCH ×2 (08:10→16:07)
[2019-12-20] MEDS: MINERAL OIL/PETROLATUM,WHITE 57 GM TUBE TP SCH (08:12)
[2019-12-20] MEDS: ENOXAPARIN SODIUM 40 MG/0.4 ML DISP.SYRIN SQ SCH (08:12)
--- NOTE | 2019-12-20 14:32 | NUR ---
patient is being discharged to assisted living facility, [facility], no distress noted, no changes note, patient is one person assist with adls, skin is intact, incision site is clean and dry, no signs and symptoms of infection noted at incision site. belongings are accounted and signed, no IV access on patient, merchandise pickup/receiving associate by ana paula at 1900.
[2019-12-20 15:05] VITALS: BP 110/50
== END 2019-12-20 21:13 | disposition home health service (06) | DRG 560 ==
PROVIDERS: ADMIT Physical Medicine & Rehabilitation Pain Medicine; ATTEND Physical Medicine & Rehabilitation Pain Medicine
DX: M80.051D Age-related osteoporosis with current pathological fracture, right femur, subsequent encounter for fracture with routine healing (principal); E87.1 Hypo-osmolality and hyponatremia; E86.1 Hypovolemia; D63.8 Anemia in other chronic diseases classified elsewhere; E03.9 Hypothyroidism, unspecified; E78.5 Hyperlipidemia, unspecified; F03.90 Unspecified dementia, unspecified severity, without behavioral disturbance, psychotic disturbance, mood disturbance, and anxiety; I10 Essential (primary) hypertension; Z86.73 Personal history of transient ischemic attack (TIA), and cerebral infarction without residual deficits; Z91.81 History of falling
CPT/HCPCS: 36415; 73502; 83735; 84100; 84443; 85018; 85025; J1650; J8499